=== PATIENT | female | born 1940 | race Two or more races ===

== ENCOUNTER 2017-02-21 13:26 | Inpatient (IN) | payer MEDICARE, OTHER ==
[~2017-02-21] VITALS: Ht 165.1 cm; Wt 81.6 kg
[2017-02-21] MEDS ORDERED: Nitroglycerin Subl 0.4mg tab (Bottle Of 25) SL ONE (14:05)
[2017-02-21] MEDS ORDERED: Morphine Sulfate 2mg/ml Inj IVP ONE (14:15)
[2017-02-21] MEDS ORDERED: Nitroglycerin Subl 0.4mg tab (Bottle Of 25) SL PRN ×3 (14:15→16:00)
[2017-02-21 14:20] LABS: BASOPHILS % (AUTO) 1.2 % (0.0-2.0); EOSINOPHILS % (AUTO) 7.6 % (0.0-3.0); LYMPHOCYTES % (AUTO) 26.9 % (20.0-45.0); MEAN CORPUSCULAR HEMOGLOBIN 28.6 PG (27.0-31.0); MEAN CORPUSCULAR HGB CONC 31.5 G/DL (32.0-36.0); MEAN CORPUSCULAR VOLUME 91 FL (80-99); MEAN PLATELET VOLUME 7.8 FL (6.5-10.1); MONOCYTES % (AUTO) 8.6 % (1.0-10.0); NEUTROPHILS % (AUTO) 55.8 % (45.0-75.0); PLATELET COUNT 187 K/UL (150-450); RED CELL DISTRIBUTION WIDTH 12.8 % (11.6-14.8); WHITE BLOOD COUNT 5.6 K/UL (4.8-10.8)
[2017-02-21 14:30] VITALS: BP 143/60
[2017-02-21 14:33] LABS: TROPONIN I < 0.30 ng/mL (<=0.30)
[2017-02-21 14:36] LABS: ALANINE AMINOTRANSFERASE 11 U/L (3-33); ALBUMIN/GLOBULIN RATIO 1.4 (1.0-2.7); ANION GAP 17 (5-15); ASPARTATE AMINO TRANSFERASE 18 U/L (5-40); CARBON DIOXIDE 19 mEQ/L (20-30); CHLORIDE 99 mEQ/L (98-107); CREATININE 1.9 mg/dL (0.5-0.9); HEMOLYSIS 10; POTASSIUM 5.7 mEQ/L (3.4-4.9); SODIUM 135 mEQ/L (135-145); TOTAL PROTEIN 7.2 g/dL (6.6-8.7)
--- NOTE | 2017-02-21 14:41 | Emergency Room Report ---
History of Present Illness General Chief Complaint: Chest Pain Source: Patient Present Illness HPI 76-year-old female presents ED complaining of chest pain. Chest pain started this morning while at rest. Pain is left-sided, dull, nonradiating. Denies shortness of breath. Notes history of hypertension but does not remember her medication. No other aggravating or relieving factors. Denies any other associated symptoms Allergies: Coded Allergies: No Known Allergies (Unverified , 02/21/17) Patient History Past Medical History: HTN, CAD Past Surgical History: none Pertinent Family History: none Social History: Denies: alcohol use, drug use, smoking Now: No Immunizations: UTD Reviewed Nursing Documentation: PMH: Agreed, PSxH: Agreed Nursing Documentation-PMH Past Medical History: No History, Except For Hx Cardiac Problems: Yes Review of Systems All Other Systems: negative except mentioned in HPI Physical Exam Vital Signs Date Time Temp Pulse Resp B/P Pulse Ox O2 Delivery O2 Flow Rate FiO2 02/21/17 13:40 97.5 66 20 163/77 95 Room Air Sp02 EP Interpretation: reviewed, normal General Appearance: no apparent distress, alert, GCS 15, non-toxic Head: normocephalic, atraumatic Eyes: bilateral eye PERRL, bilateral eye normal inspection ENT: hearing grossly normal, normal pharynx, no angioedema, normal voice Neck: full range of motion, supple/symm/no masses Respiratory: chest non-tender, lungs clear, normal breath sounds, speaking full sentences Cardiovascular #1: regular rate, rhythm, no edema Cardiovascular #2: 2+ carotid (R), 2+ carotid (L), 2+ radial (R), 2+ radial (L) , 2+ dorsalis pedis (R), 2+ dorsalis pedis (L) Gastrointestinal: normal bowel sounds, non tender, soft, non-distended, no guarding, no rebound Rectal: deferred Genitourinary: normal inspection, no CVA tenderness Musculoskeletal: back normal, gait/station normal, normal range of motion, non- tender Neurologic: alert, oriented x3, responsive, motor strength/tone normal, sensory intact, speech normal Psychiatric: judgement/insight normal, memory normal, mood/affect normal, no suicidal/homicidal ideation Reflexes: 3+ bicep (R), 3+ bicep (L), 3+ tricep (R), 3+ tricep (L), 3+ knee (R) , 3+ knee (L) Skin: normal color, no rash, warm/dry, well hydrated Lymphatic: no adenopathy Medical Decision Making Diagnostic Impression: Primary Impression: ACS (acute coronary syndrome) Additional Impressions: Hyperkalemia, diminished renal excretion ARF (acute renal failure) Qualified Codes: N17.9 - Acute kidney failure, unspecified ER Course Hospital Course 76-year-old female presents ED complaining of left-sided chest pain Differential diagnoses include: OR/unstable angina, contusion, muscle strain, PTX, rib fracture Clinical course Patient placed on stretcher. on nurse outreach case manager. After initial history and physical I ordered labs, EKG, chest x-ray, NTG labs reviewed- no leukocytosis, hb/hct stable, K 5.7, Cr 1.9, trop negative EKG - NSR, no acute changes Chest x-ray- unremarkable Patient denies show significant improvement after nitroglycerin. Given morphine and aspirin pain improving Case discussed with Dr. Breaux and he agreed to accept the patient to his service for further care and support I. I feel this is a highly complex case requiring extensive working including EKG/Rhythm strip, Xray/CT/US, Blood/urine lab work, repeat exams while in ED, and administration of strong opiates/narcotics for pain control, admission to hospital or close patient follow up. Diagnosis - ACS, hyperkalemia, ARF admitted to telemetry in serious condition Labs Test 02/21/17 14:05 White Blood Count 5.6 K/UL (4.8-10.8) Red Blood Count 4.40 M/UL (4.20-5.40) Hemoglobin 12.6 G/DL (12.0-16.0) Hematocrit 40.0 % (37.0-47.0) Mean Corpuscular Volume 91 FL (80-99) Mean Corpuscular Hemoglobin 28.6 PG (27.0-31.0) Mean Corpuscular Hemoglobin Concent 31.5 G/DL (32.0-36.0) Red Cell Distribution Width 12.8 % (11.6-14.8) Platelet Count 187 K/UL (150-450) Mean Platelet Volume 7.8 FL (6.5-10.1) Neutrophils (%) (Auto) 55.8 % (45.0-75.0) Lymphocytes (%) (Auto) 26.9 % (20.0-45.0) Monocytes (%) (Auto) 8.6 % (1.0-10.0) Eosinophils (%) (Auto) 7.6 % (0.0-3.0) Basophils (%) (Auto) 1.2 % (0.0-2.0) Sodium Level 135 mEQ/L (135-145) Potassium Level 5.7 mEQ/L (3.4-4.9) Chloride Level 99 mEQ/L (98-107) Carbon Dioxide Level 19 mEQ/L (20-30) Anion Gap 17 (5-15) Blood Urea Nitrogen 47 mg/dL (7-23) Creatinine 1.9 mg/dL (0.5-0.9) Estimat Glomerular Filtration Rate mL/min (>60) Glucose Level 100 mg/dL (74-106) Calcium Level 10.0 mg/dL (8.6-10.2) Total Bilirubin 0.4 mg/dL (0.0-1.2) Aspartate Amino Transf (AST/SGOT) 18 U/L (5-40) Alanine Aminotransferase (ALT/SGPT) 11 U/L (3-33) Alkaline Phosphatase 87 U/L (35-104) Total Creatine Kinase 73 U/L (26-140) Troponin I < 0.30 ng/mL (<=0.30) Total Protein 7.2 g/dL (6.6-8.7) Albumin 4.2 g/dL (3.5-5.2) Globulin 3.0 g/dL Albumin/Globulin Ratio 1.4 (1.0-2.7) EKG Diagnostic Results Rate: normal Rhythm: NSR ST Segments: no acute changes ASA given to the pt in ED: Yes Rhythm Strip Diag. Results EP Interpretation: yes Rhythm: NSR, no PVC's, no ectopy Chest X-Ray Diagnostic Results EP Interpretation: Yes Findings: no consolidation, no effusion, no pneumothorax, no acute cardiopulmonary disease Number of Views: 1 Last Vital Signs Date Time Temp Pulse Resp B/P Pulse Ox O2 Delivery O2 Flow Rate FiO2 02/21/17 14:12 174/72 02/21/17 13:40 97.5 66 20 95 Room Air Status: improved Disposition: ADMITTED INPATIENT Condition: Serious Referrals: NON PHYSICIAN (PCP) MELINDA RENE M.D. February 21, 2017 14:41
[2017-02-21] MEDS ORDERED: Sodium Polystyrene Sulfonate 15gm Powder ORAL ONE (14:45)
[2017-02-21] MEDS ORDERED: Ketorolac 30mg Inj IV PRN (14:45)
[2017-02-21] MEDS ORDERED: Diltiazem 25mg/5ml IV PRN (14:45)
[2017-02-21] MEDS ORDERED: Enalaprilat 2.5mg/2ml Inj IV PRN (14:45)
[2017-02-21] MEDS ORDERED: Calcium Gluconate 1gm/10ml vial IVP ONE (14:45)
[2017-02-21] MEDS ORDERED: DuoNeb 0.5-3(2.5)mg/3ml neb HHN PRN (14:45)
[2017-02-21] MEDS ORDERED: Miralax 17gm pkt ORAL PRN (14:45)
[2017-02-21] MEDS ORDERED: Morphine Sulfate 2mg/ml Inj IVP PRN (14:45)
[2017-02-21 14:47] LABS: CKMB 2.2 ng/mL (< 3.8)
[2017-02-21 15:30] LABS: MAGNESIUM 1.9 mg/dL (1.7-2.5); PHOSPHORUS 3.3 mg/dL (2.5-4.8)
[2017-02-21 15:45] LABS: APPEARANCE,URINE CLEAR; KETONES,URINE NEGATIVE (NEGATIVE); LEUKOCYTE ESTERASE ,URINE NEGATIVE (NEGATIVE); NITRITE,URINE NEGATIVE (NEGATIVE); PH,URINE 6 (4.5-8.0); PROTEIN,URINE NEGATIVE (NEGATIVE); UROBILINOGEN,URINE NORMAL MG/DL (0.0-1.0)
--- NOTE | 2017-02-21 15:48 | Consultation ---
Consult Note Consult Note Cardiology consult for Dr. Leger Full note dictated #[id number] JOHNNY ENGEL February 21, 2017 15:48
[2017-02-21 16:00] VITALS: BP 148/73
[2017-02-21 16:19] LABS: RBC,URINE 0-2 /HPF (0 - 2)
[2017-02-21 16:20] LABS: AMORPHOUS SEDIMENT,UR FEW /LPF; BACTERIA,URINE FEW /HPF; SQUAMOUS EPITHELIAL CELL,UR OCCASIONAL /LPF (NONE/OCC); WBC,URINE 0-2 /HPF (0 - 2)
[2017-02-21 16:39] VITALS: BP 142/74
--- NOTE | 2017-02-21 19:30 | Consultation ---
DATE OF CONSULTATION: 02/21/2017 REQUESTING PHYSICIAN: Mike Breaux M.D. REASON FOR CONSULT: Chest pain. HISTORY OF PRESENT ILLNESS: History is obtained from the treating providers and the patient's family, as the patient is [place] Citizen-speaking. The patient is a 76-year-old [place] Citizen woman with a history of hypertension and hyperlipidemia, who presents with complaints of left-sided chest pain radiating across her chest into her back. Symptoms began while at rest this morning at about 9 a.m. The pain was constant for about four hours and then worsened. So, she presented to the emergency room. She describes associated nausea without vomiting, mild dizziness/lightheadedness and dyspnea. In the emergency room, she received sublingual nitroglycerin as well as morphine with resolution of her symptoms. Her initial EKG did not show acute ischemic change and initial troponin is negative. She has no previous history of coronary disease and has not had any previous similar symptoms. PAST MEDICAL HISTORY: As noted above. 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 PAST SURGICAL HISTORY: Status post bilateral cataract surgery about five years ago. MEDICATIONS: On admission, (the patient is unsure of all of her medications and doses) Singulair, Antivert, amlodipine, metoprolol, Lipitor and Symbicort inhaler. ALLERGIES: No known drug allergies. SOCIAL HISTORY: There is no history of tobacco or alcohol abuse. FAMILY HISTORY: Positive for diabetes in her sister and asthma in her mother. PHYSICAL EXAMINATION: GENERAL: Alert, obese white female, in no acute distress. VITAL SIGNS: Blood pressure is 174/72, pulse 66 and regular, respirations 20, afebrile and oxygen saturation 95% on room air. HEENT: Normocephalic and atraumatic. Pupils are equal, round, and reactive to light. Sclerae anicteric. Oral mucosa are moist. NECK: Supple. There is no jugular venous distention. No thyromegaly. Carotid pulses are 2+ bilaterally without bruits. LUNGS: Clear to auscultation bilaterally. HEART: Regular rate and rhythm. S1 and S2 with distant heart sounds. No murmurs, rubs, S3, S4. ABDOMEN: Obese, soft and nontender. No palpable mass. No bruits. EXTREMITIES: No cyanosis, clubbing, or edema. A 2+ dorsalis pedis and posterior tibial pulses bilaterally. SKIN: No rashes or lesions. LABORATORY AND DIAGNOSTIC DATA: Hemoglobin 12.6, hematocrit 40, white blood count 5600, and platelets 187,000. Troponin less than 0.3. Sodium 135, potassium 5.7, chloride 99, bicarbonate 19, BUN 47, and creatinine 1.9. Natriuretic peptide 393. EKG shows normal sinus rhythm at a rate of 62 beats per minute, axis 0 degrees, low voltage QRS, poor R progression in V1 and V2. No ST-segment or T-wave changes. No old EKG available for comparison. Chest x-ray is pending. ASSESSMENT AND RECOMMENDATIONS: The patient is a 76-year-old woman with a history of hypertension and hyperlipidemia who is admitted with acute onset of chest pain radiating to her back associated with nausea and mild lightheadedness. She is noted to have been negative initial troponin level. She does have however an elevated potassium level and renal insufficiency with creatinine of 1.9. Her baseline renal function is not known. She will be admitted to telemetry to rule out myocardial infarction. Serial troponin levels and EKGs will be obtained. Her home medications will be brought in by her daughter. She will undergo echocardiography to assess left ventricular function and wall motion. We will give aspirin, metoprolol and statins for coronary disease. Continue amlodipine for blood pressure control. Kayexalate can be given for her hyperkalemia. If she rules out for myocardial infarction, then a stress nuclear study is reasonable to rule out myocardial ischemia. Fernanda Bearden M.D. DR: NAGI JOB#: [id number] CC: Fernanda Bearden M.D.
[2017-02-21 20:00] VITALS: BP 127/63
[2017-02-21] MEDS ORDERED: CRESTOR20 MG ORAL (20:02)
[2017-02-21] MEDS ORDERED: METOPROLOL TART25 MG ORAL (20:02)
[2017-02-21] MEDS ORDERED: CLONAZEPAM0.5 MG PO (20:02)
[2017-02-21] MEDS ORDERED: MECLIZINE HCL25 M1 ORAL (20:02)
[2017-02-21] MEDS ORDERED: ROPINIROLE HC0.25 MG PO (20:02)
[2017-02-21] MEDS ORDERED: METHIMAZOLE10 MG PO (20:02)
[2017-02-21] MEDS ORDERED: OLANZAPINE2.5 MG ORAL (20:02)
[2017-02-21] MEDS ORDERED: APRESOLINE50 MG ORAL (20:02)
[2017-02-21] MEDS ORDERED: TRAMADOL HCL50 MG ORAL (20:02)
[2017-02-21] MEDS ORDERED: NAMENDA XR7 MG PO (20:02)
[2017-02-21] MEDS ORDERED: MICARDIS80 MG ORAL (20:02)
[2017-02-21] MEDS ORDERED: NEXIUM40 MG ORAL (20:02)
[2017-02-21] MEDS ORDERED: MYRBETRIQ50 MG PO (20:02)
[2017-02-21] MEDS ORDERED: rOPINIRole 0.25mg tab ORAL SCH (21:00)
[2017-02-21] MEDS ORDERED: OLANZapine 2.5mg tab ORAL SCH (21:00)
[2017-02-21] MEDS ORDERED: Atorvastatin 20mg tab ORAL SCH (21:00)
[2017-02-21] MEDS ORDERED: Metoprolol 25mg tab ORAL SCH (21:00)
[2017-02-21] MEDS: Metoprolol 25mg tab ORAL SCH (21:25)
[2017-02-21] MEDS: Heparin 5000 units/ml inj SUBQ SCH (21:27)
[2017-02-21] MEDS: HydrALAZINE 50mg tab ORAL SCH (22:14)
[2017-02-21] MEDS: traMADol 50mg tab ORAL PRN (22:16)
--- NOTE | 2017-02-21 22:28 | History and Physical ---
History of Present Illness General Date patient seen: February 22, 2017 Reason for Hospitalization: Chest Pain Present Illness HPI 76-year-old female with hx of htn, CAD presented to ED complaining of chest pain, started this morning while at rest. Pain is left-sided, dull, nonradiating. Denies shortness of breath. Notes history of hypertension but does not remember her medication. No other aggravating or relieving factors. Denies any other associated symptoms. Pt is admitted to telemetry for further work up. Allergies: Coded Allergies: No Known Allergies (Unverified , 02/21/17) Medication History Scheduled Clonazepam (Clonazepam), 0.5 MG PO BID, (Reported) Esomeprazole Magnesium (Nexium), 40 MG ORAL DAILY, (Reported) Hydralazine HCl (Hydralazine HCl), 50 MG ORAL EVERY 8 HOURS, (Reported) Memantine Hcl (Namenda Xr), 7 MG PO QHS, (Reported) Methimazole (Methimazole), 10 MG PO EVERY OTHER DAY, (Reported) Metoprolol Tartrate* (Metoprolol Tartrate*), 25 MG ORAL EVERY 12 HOURS, ( Reported) Mirabegron (Myrbetriq), 50 MG PO DAILY, (Reported) Olanzapine (Olanzapine), 2.5 MG ORAL QHS, (Reported) Ropinirole Hcl* (Ropinirole Hcl*), 0.25 MG PO QHS, (Reported) Rosuvastatin Calcium* (Crestor*), 20 MG ORAL DAILY, (Reported) Telmisartan (Micardis), 80 MG ORAL DAILY, (Reported) Tramadol Hcl* (Ultram*), 50 MG ORAL TID, (Reported) Scheduled PRN Meclizine Hcl (Meclizine Hcl), 25 MG ORAL THREE TIMES A DAY PRN for for dizziness, (Reported) Patient History Healthcare decision maker Resuscitation status Full Code Advanced Directive on File No Review of Systems All Other Systems: negative except mentioned in HPI Physical Exam General Appearance: WD/WN Lines, tubes and drains: peripheral, central line HEENT: normocephalic, atraumatic Neck: non-tender, normal alignment Respiratory/Chest: chest wall non-tender, lungs clear Breasts: no masses Cardiovascular/Chest: normal peripheral pulses Abdomen: normal bowel sounds Extremities: normal range of motion, non-tender Last 24 Hour Vital Signs Date Time Temp Pulse Resp B/P Pulse Ox O2 Delivery O2 Flow Rate FiO2 02/21/17 22:14 132/71 02/21/17 21:25 66 127/63 02/21/17 20:00 96.8 66 21 127/63 94 Room Air 02/21/17 17:32 65 142/74 02/21/17 16:39 97.9 65 18 142/74 95 Room Air 02/21/17 16:34 66 02/21/17 16:00 62 16 148/73 99 Room Air 02/21/17 16:00 97.9 62 16 148/73 99 Room Air 02/21/17 14:48 97.9 02/21/17 14:30 97.5 69 14 143/60 98 Room Air 02/21/17 14:30 69 14 Room Air 02/21/17 14:12 174/72 02/21/17 13:40 97.5 66 20 163/77 95 Room Air Laboratory Tests Test 02/21/17 14:05 02/21/17 14:15 02/21/17 14:50 White Blood Count 5.6 K/UL (4.8-10.8) Red Blood Count 4.40 M/UL (4.20-5.40) Hemoglobin 12.6 G/DL (12.0-16.0) Hematocrit 40.0 % (37.0-47.0) Mean Corpuscular Volume 91 FL (80-99) Mean Corpuscular Hemoglobin 28.6 PG (27.0-31.0) Mean Corpuscular Hemoglobin Concent 31.5 G/DL (32.0-36.0) L Red Cell Distribution Width 12.8 % (11.6-14.8) Platelet Count 187 K/UL (150-450) Mean Platelet Volume 7.8 FL (6.5-10.1) Neutrophils (%) (Auto) 55.8 % (45.0-75.0) Lymphocytes (%) (Auto) 26.9 % (20.0-45.0) Monocytes (%) (Auto) 8.6 % (1.0-10.0) Eosinophils (%) (Auto) 7.6 % (0.0-3.0) H Basophils (%) (Auto) 1.2 % (0.0-2.0) Sodium Level 135 mEQ/L (135-145) Potassium Level 5.7 mEQ/L (3.4-4.9) H Chloride Level 99 mEQ/L (98-107) Carbon Dioxide Level 19 mEQ/L (20-30) L Anion Gap 17 (5-15) H Blood Urea Nitrogen 47 mg/dL (7-23) H Creatinine 1.9 mg/dL (0.5-0.9) H Estimat Glomerular Filtration Rate mL/min (>60) Glucose Level 100 mg/dL (74-106) Calcium Level 10.0 mg/dL (8.6-10.2) Total Bilirubin 0.4 mg/dL (0.0-1.2) Aspartate Amino Transf (AST/SGOT) 18 U/L (5-40) Alanine Aminotransferase (ALT/SGPT) 11 U/L (3-33) Alkaline Phosphatase 87 U/L (35-104) Total Creatine Kinase 73 U/L (26-140) Creatine Kinase MB 2.2 ng/mL (< 3.8) Creatine Kinase MB Relative Index 3.0 Troponin I < 0.30 ng/mL (<=0.30) Pro-B-Type Natriuretic Peptide 393 pg/mL (0-450) Total Protein 7.2 g/dL (6.6-8.7) Albumin 4.2 g/dL (3.5-5.2) Globulin 3.0 g/dL Albumin/Globulin Ratio 1.4 (1.0-2.7) Plasma/Serum Osmolality Pending Uric Acid 8.0 mg/dL (3.0-7.5) H Phosphorus Level 3.3 mg/dL (2.5-4.8) Magnesium Level 1.9 mg/dL (1.7-2.5) Free Thyroxine 1.23 ng/dL (0.86-1.85) Free Triiodothyronine Pending Cortisol Pending Urine Color Pale yellow Urine Appearance Clear Urine pH 6 (4.5-8.0) Urine Specific [place] 1.005 (1.005-1.035) Urine Protein Negative (NEGATIVE) Urine Glucose (UA) Negative (NEGATIVE) Urine Ketones Negative (NEGATIVE) Urine Occult Blood Negative (NEGATIVE) Urine Nitrite Negative (NEGATIVE) Urine Bilirubin Negative (NEGATIVE) Urine Urobilinogen Normal MG/DL (0.0-1.0) Urine Leukocyte Esterase Negative (NEGATIVE) Urine RBC 0-2 /HPF (0 - 2) Urine WBC 0-2 /HPF (0 - 2) Urine Squamous Epithelial Cells Occasional /LPF Urine Amorphous Sediment Few /LPF (NONE) H Urine Bacteria Few /HPF (NONE) Urine Eosinophils None seen Urine Osmolality Pending Urine Random Sodium 33 mmol/L Urine Random Chloride 30 mmol/L Urine Potassium Timed 13 mmol/L Height (Feet): 5 Height (Inches): 5.00 Weight (Pounds): 180 Medications Current Medications Medications (Trade) Dose Ordered Sig/Tressa Route PRN Reason Start Time Stop Time Status Last Admin Dose Admin Acetaminophen (Tylenol) 650 mg Q4H PRN ORAL T>100.5 02/21/17 14:45 03/23/17 14:44 Albuterol/ Ipratropium (DuoNeb 0.5-3(2.5)mg/3ml) 3 ml Q4H PRN HHN Shortness of Breath 02/21/17 14:45 02/26/17 14:44 Amlodipine Besylate (Norvasc) 5 mg DAILY ORAL 02/21/17 16:30 03/23/17 16:29 02/21/17 17:32 Aspirin (Ecotrin) 81 mg DAILY ORAL 02/22/17 09:00 03/24/17 08:59 Atorvastatin Calcium (Lipitor) 20 mg QHS ORAL 02/21/17 21:00 03/23/17 20:59 02/21/17 21:26 Clonazepam (KlonoPIN) 0.5 mg BID ORAL 02/22/17 09:00 03/01/17 08:59 Diltiazem HCl (Cardizem) 10 mg Q1H PRN IV HR > 120 02/21/17 14:45 03/23/17 14:44 Enalaprilat (Vasotec) 2.5 mg Q6H PRN IV sbp more than 160 02/21/17 14:45 03/23/17 14:44 Heparin Sodium (Porcine) (Heparin 5000 units/ml) 5,000 units EVERY 12 HOURS SUBQ 02/21/17 21:00 03/23/17 20:59 02/21/17 21:27 Hydralazine HCl (Apresoline) 50 mg EVERY 8 HOURS ORAL 02/21/17 22:00 03/23/17 21:59 02/21/17 22:14 Metoprolol Tartrate (Lopressor) 25 mg Q12HR ORAL 02/21/17 21:00 03/23/17 20:59 02/21/17 21:25 Morphine Sulfate (Morphine Sulfate) 2 mg Q4H PRN IVP Severe Pain (Pain Scale 7-10) 02/21/17 14:45 02/28/17 14:44 Nitroglycerin (Ntg) 0.4 mg Every 5 Minutes PRN SL Prn Chest Pain 02/21/17 14:45 03/23/17 14:44 Olanzapine (ZyPREXA) 2.5 mg QHS ORAL 02/21/17 21:00 03/23/17 20:59 02/21/17 21:26 Ondansetron HCl (Zofran) 4 mg Q6H PRN IVP Nausea & Vomiting 02/21/17 14:45 03/23/17 14:44 Pantoprazole (Protonix) 40 mg DAILY ORAL 02/22/17 09:00 03/24/17 08:59 Polyethylene Glycol (Miralax) 17 gm DAILYPRN PRN ORAL Constipation 02/21/17 14:45 03/23/17 14:44 Ropinirole HCl (Requip) 0.25 mg QHS ORAL 02/21/17 21:00 03/23/17 20:59 02/21/17 22:13 Temazepam (Restoril) 15 mg HSPRN PRN ORAL Insomnia 02/21/17 21:00 02/28/17 20:59 Tramadol HCl (Ultram) 50 mg TIDPRN PRN ORAL Moderate Pain (Pain Scale 4-6) 02/21/17 21:52 02/28/17 21:51 02/21/17 22:16 Assessment/Plan Problem List: (1) ACS (acute coronary syndrome) ICD Codes: I24.9 - Acute ischemic heart disease, unspecified SNOMED: 676504969 (2) Hyperkalemia, diminished renal excretion ICD Codes: E87.5 - Hyperkalemia SNOMED: 16016636 (3) ARF (acute renal failure) ICD Codes: N17.9 - Acute kidney failure, unspecified SNOMED: 55257938 Qualifiers: Qualified Codes: N17.9 - Acute kidney failure, unspecified (4) Costochondritis ICD Codes: M94.0 - Chondrocostal junction syndrome [Tietze] SNOMED: 51709061 Assessment/Plan serial ekg, troponin, echo cardio to see renal w/u renal us sympotmatic treatment WINSOME REECE February 21, 2017 22:28
[2017-02-22] VITALS (7 sets, daily range): BP systolic 106–128; BP diastolic 54–72
[2017-02-22] MEDS: HydrALAZINE 50mg tab ORAL SCH ×2 (06:05→14:19)
--- NOTE | 2017-02-22 07:26 | Cardiology Report ---
APPROVED REPORT EXAM: Two-dimensional and M-mode echocardiogram with Doppler and color Doppler. INDICATION Left ventricular function M-Mode DIMENSIONS IVSd0.8 (0.7-1.1cm)Left Atrium (MM)3.8 (1.6-4.0cm) LVDd4.9 (3.5-5.6cm)Aortic Root2.6 (2.0-3.7cm) PWd0.8 (0.7-1.1cm)Aortic Cusp Exc.1.7 (1.5-2.0cm) LVDs2.4 (2.5-4.0cm) PWs0.8 cm Normal left ventricular chamber size, systolic function and wall motion. Left ventricular ejection fraction estimated to be 60-65 %. No evidence of left ventricular hypertrophy. No evidence of pericardial fat or effusion. Right cardiac chamber sizes are within normal limits. Mild left atrial enlargement by 2D. Focal aortic valve sclerosis with adequate cusp excursion Thickened mitral valve leaflets with normal excursion. Mitral annulus and aortic root calcification. Pulmonic valve not well visualized. Normal tricuspid valve structure. IVC is normal in size with physiologic collapse. A color flow and spectral Doppler study was performed and revealed: No aortic regurgitation. Moderate mitral regurgitation. Normal left ventricular function. Mild tricuspid regurgitation. Tricuspid systolic velocities suggests peak right ventricular systolic pressure of 30 mmHg
[2017-02-22 08:14] LABS: PROTHROMBIN TIME 10.6 SEC (9.30-11.50)
[2017-02-22 08:15] LABS: MEAN CORPUSCULAR HEMOGLOBIN 28.3 PG (27.0-31.0); MEAN CORPUSCULAR HGB CONC 31.4 G/DL (32.0-36.0); MEAN CORPUSCULAR VOLUME 90 FL (80-99); PLATELET COUNT 148 K/UL (150-450); RED BLOOD COUNT 3.76 M/UL (4.20-5.40); WHITE BLOOD COUNT 4.5 K/UL (4.8-10.8)
[2017-02-22 08:24] LABS: CHOLESTEROL/HDL RATIO 3.5 (3.3-4.4); CRP QUANT 0.4 mg/dL (< 0.5)
[2017-02-22 08:26] LABS: THYROID STIMULATING HORMONE 0.037 uIU/mL (0.300-4.500)
[2017-02-22 08:48] LABS: TROPONIN I < 0.30 ng/mL (<=0.30)
[2017-02-22] MEDS ORDERED: Aspirin Baby 81mg ORAL SCH (09:00)
[2017-02-22] MEDS ORDERED: traMADol 50mg tab ORAL PRN (09:00)
[2017-02-22] MEDS ORDERED: traMADol 50mg tab ORAL SCH (09:00)
[2017-02-22] MEDS ORDERED: Aspirin EC 81mg tab ORAL SCH (09:00)
[2017-02-22 09:22] LABS: BAND NEUTROPHILS % (MANUAL) 0 % (0-8); BASOPHILS % (MANUAL) 0 % (0-2); EOSINOPHILS % (MANUAL) 5 % (0-3); HYPOCHROMASIA 1+; LYMPHOCYTES % (MANUAL) 30 % (20-45); NEUTROPHILS % (MANUAL) 57 % (45-75); PLATELET ESTIMATE ADEQUATE; PLATELET MORPHOLOGY NORMAL; TOTAL CELLS COUNTED 100
[2017-02-22] MEDS: clonazePAM 0.5mg tab ORAL SCH ×2 (09:53→17:31)
[2017-02-22] MEDS: traMADol 50mg tab ORAL PRN (09:57)
[2017-02-22] MEDS: Metoprolol 25mg tab ORAL SCH (10:14)
[2017-02-22] MEDS: Heparin 5000 units/ml inj SUBQ SCH (10:17)
[2017-02-22 10:20] LABS: CORTISOL LC 13.9 ug/dL (.)
--- NOTE | 2017-02-22 12:47 | Pulmonology Progress Note ---
Assessment/Plan Problems: (1) ACS (acute coronary syndrome) (2) Hyperkalemia, diminished renal excretion (3) ARF (acute renal failure) (4) Costochondritis Assessment/Plan check echo cardio f/u renal studies pending symptomatic treatment troponin negative Subjective ROS Limited/Unobtainable: No Constitutional: Reports: no symptoms Respiratory: Reports: no symptoms Cardiovascular: Reports: no symptoms Allergies: Coded Allergies: No Known Allergies (Unverified , 02/21/17) Objective Last 24 Hour Vital Signs Date Time Temp Pulse Resp B/P Pulse Ox O2 Delivery O2 Flow Rate FiO2 02/22/17 11:55 97.5 67 18 121/64 95 Room Air 02/22/17 10:27 97.0 02/22/17 10:14 71 120/61 02/22/17 10:14 71 120/61 02/22/17 10:01 71 120/61 02/22/17 08:17 97.0 73 18 106/54 96 Room Air 02/22/17 07:57 74 20 Room Air 21 02/22/17 06:05 118/64 02/22/17 04:00 61 02/22/17 04:00 96.8 63 21 118/69 98 Room Air 02/22/17 00:00 97.7 65 20 128/72 94 Room Air 02/22/17 00:00 60 02/21/17 22:14 132/71 02/21/17 21:25 66 127/63 02/21/17 20:00 96.8 66 21 127/63 94 Room Air 02/21/17 20:00 65 02/21/17 19:30 68 20 Room Air 21 02/21/17 17:32 65 142/74 02/21/17 16:39 97.9 65 18 142/74 95 Room Air 02/21/17 16:34 66 02/21/17 16:00 62 16 148/73 99 Room Air 02/21/17 16:00 97.9 62 16 148/73 99 Room Air 02/21/17 14:48 97.9 02/21/17 14:30 97.5 69 14 143/60 98 Room Air 02/21/17 14:30 69 14 Room Air 02/21/17 14:12 174/72 02/21/17 13:40 97.5 66 20 163/77 95 Room Air Intake and Output 02/21/17 02/22/17 19:00 07:00 Intake Total 740 ml 100 ml Balance 740 ml 100 ml Intake Oral 240 ml 100 ml IV Total 500 ml General Appearance: WD/WN HEENT: normocephalic, atraumatic Respiratory/Chest: chest wall non-tender, lungs clear Breasts: no masses Cardiovascular: normal peripheral pulses Abdomen: normal bowel sounds, soft, non tender Genitourinary: normal external genitalia Extremities: no cyanosis, no clubbing Skin: no rash Neurologic/Psychiatric: health inspector II-XII grossly normal Lymphatic: no neck adenopathy Laboratory Tests 02/21/17 14:05: White Blood Count 5.6, Red Blood Count 4.40, Hemoglobin 12.6, Hematocrit 40.0, Mean Corpuscular Volume 91, Mean Corpuscular Hemoglobin 28.6, Mean Corpuscular Hemoglobin Concent 31.5L, Red Cell Distribution Width 12.8, Platelet Count 187, Mean Platelet Volume 7.8, Neutrophils (%) (Auto) 55.8, Lymphocytes (%) (Auto) 26.9, Monocytes (%) (Auto) 8.6, Eosinophils (%) (Auto) 7.6H, Basophils (%) (Auto ) 1.2, Sodium Level 135, Potassium Level 5.7H, Chloride Level 99, Carbon Dioxide Level 19L, Anion Gap 17H, Blood Urea Nitrogen 47H, Creatinine 1.9H, Estimat Glomerular Filtration Rate , Glucose Level 100, Calcium Level 10.0, Total Bilirubin 0.4, Aspartate Amino Transf (AST/SGOT) 18, Alanine Aminotransferase (ALT/SGPT) 11, Alkaline Phosphatase 87, Total Creatine Kinase 73, Creatine Kinase MB 2.2, Creatine Kinase MB Relative Index 3.0, Troponin I < 0.30, Pro-B-Type Natriuretic Peptide 393, Total Protein 7.2, Albumin 4.2, Globulin 3.0, Albumin/Globulin Ratio 1.4 02/21/17 14:15: Plasma/Serum Osmolality [Pending], Uric Acid 8.0H, Phosphorus Level 3.3, Magnesium Level 1.9, Free Thyroxine 1.23, Free Triiodothyronine [Pending], Cortisol 13.9 02/21/17 14:50: Urine Color Pale yellow, Urine Appearance Clear, Urine pH 6, Urine Specific [place] 1.005, Urine Protein Negative, Urine Glucose (UA) Negative, Urine Ketones Negative, Urine Occult Blood Negative, Urine Nitrite Negative, Urine Bilirubin Negative, Urine Urobilinogen Normal, Urine Leukocyte Esterase Negative , Urine RBC 0-2, Urine WBC 0-2, Urine Squamous Epithelial Cells Occasional, Urine Amorphous Sediment FewH, Urine Bacteria Few, Urine Eosinophils None seen, Urine Osmolality [Pending], Urine Random Sodium 33, Urine Random Chloride 30, Urine Potassium Timed 13 02/22/17 07:45: White Blood Count 4.5L, Red Blood Count 3.76L, Hemoglobin 10.7L, Hematocrit 33.9L, Mean Corpuscular Volume 90, Mean Corpuscular Hemoglobin 28.3, Mean Corpuscular Hemoglobin Concent 31.4L, Red Cell Distribution Width 13.0, Platelet Count 148L, Mean Platelet Volume 7.0, Neutrophils (%) (Auto) , Lymphocytes (%) (Auto) , Monocytes (%) (Auto) , Eosinophils (%) (Auto) , Basophils (%) (Auto) , Troponin I < 0.30, Differential Total Cells Counted 100, Neutrophils % (Manual) 57, Lymphocytes % (Manual) 30, Monocytes % (Manual) 8, Eosinophils % (Manual) 5H, Basophils % (Manual) 0, Band Neutrophils 0, Platelet Estimate Adequate, Platelet Morphology Normal, Hypochromasia 1+, Prothrombin Time 10.6, Prothromb Time International Ratio 1.0, Activated Partial Thromboplast Time 26, C-Reactive Protein, Quantitative 0.4, Triglycerides Level 116, Cholesterol Level 158, LDL Cholesterol 90, HDL Cholesterol 45, Cholesterol/ HDL Ratio 3.5, Thyroid Stimulating Hormone (TSH) 0.037L Current Medications Medications (Trade) Dose Ordered Sig/Tressa Route PRN Reason Start Time Stop Time Status Last Admin Dose Admin Acetaminophen (Tylenol) 650 mg Q4H PRN ORAL T>100.5 02/21/17 14:45 03/23/17 14:44 Albuterol/ Ipratropium (DuoNeb 0.5-3(2.5)mg/3ml) 3 ml Q4H PRN HHN Shortness of Breath 02/21/17 14:45 02/26/17 14:44 Amlodipine Besylate (Norvasc) 5 mg DAILY ORAL 02/21/17 16:30 03/23/17 16:29 02/22/17 10:14 Aspirin (Ecotrin) 81 mg DAILY ORAL 02/22/17 09:00 03/24/17 08:59 02/22/17 09:53 Atorvastatin Calcium (Lipitor) 20 mg QHS ORAL 02/21/17 21:00 03/23/17 20:59 02/21/17 21:26 Clonazepam (KlonoPIN) 0.5 mg BID ORAL 02/22/17 09:00 03/01/17 08:59 02/22/17 09:53 Diltiazem HCl (Cardizem) 10 mg Q1H PRN IV HR > 120 02/21/17 14:45 03/23/17 14:44 Enalaprilat (Vasotec) 2.5 mg Q6H PRN IV sbp more than 160 02/21/17 14:45 03/23/17 14:44 Heparin Sodium (Porcine) (Heparin 5000 units/ml) 5,000 units EVERY 12 HOURS SUBQ 02/21/17 21:00 03/23/17 20:59 02/22/17 10:17 Hydralazine HCl (Apresoline) 50 mg EVERY 8 HOURS ORAL 02/21/17 22:00 03/23/17 21:59 02/22/17 06:05 Metoprolol Tartrate (Lopressor) 25 mg Q12HR ORAL 02/21/17 21:00 03/23/17 20:59 02/22/17 10:14 Morphine Sulfate (Morphine Sulfate) 2 mg Q4H PRN IVP Severe Pain (Pain Scale 7-10) 02/21/17 14:45 02/28/17 14:44 Nitroglycerin (Ntg) 0.4 mg Every 5 Minutes PRN SL Prn Chest Pain 02/21/17 14:45 03/23/17 14:44 Olanzapine (ZyPREXA) 2.5 mg QHS ORAL 02/21/17 21:00 03/23/17 20:59 02/21/17 21:26 Ondansetron HCl (Zofran) 4 mg Q6H PRN IVP Nausea & Vomiting 02/21/17 14:45 03/23/17 14:44 Pantoprazole (Protonix) 40 mg DAILY ORAL 02/22/17 09:00 03/24/17 08:59 02/22/17 09:54 Polyethylene Glycol (Miralax) 17 gm DAILYPRN PRN ORAL Constipation 02/21/17 14:45 03/23/17 14:44 Ropinirole HCl (Requip) 0.25 mg QHS ORAL 02/21/17 21:00 03/23/17 20:59 02/21/17 22:13 Temazepam (Restoril) 15 mg HSPRN PRN ORAL Insomnia 02/21/17 21:00 02/28/17 20:59 Tramadol HCl (Ultram) 50 mg TIDPRN PRN ORAL Moderate Pain (Pain Scale 4-6) 02/21/17 21:52 02/28/17 21:51 02/22/17 09:57 WINSOME REECE February 22, 2017 12:47
[2017-02-22 13:05] LABS: ALANINE AMINOTRANSFERASE 9 U/L (3-33); ALBUMIN/GLOBULIN RATIO 1.1 (1.0-2.7); ANION GAP 15 (5-15); ASPARTATE AMINO TRANSFERASE 16 U/L (5-40); CALCIUM 9.8 mg/dL (8.6-10.2); CARBON DIOXIDE 18 mEQ/L (20-30); CHLORIDE 106 mEQ/L (98-107); CREATININE 1.8 mg/dL (0.5-0.9); HEMOLYSIS 5; POTASSIUM 4.6 mEQ/L (3.4-4.9); SODIUM 139 mEQ/L (135-145); TOTAL PROTEIN 6.3 g/dL (6.6-8.7)
--- NOTE | 2017-02-22 14:17 | Diagnostic Imaging Report ---
Indication: Abnormal renal function tests Technique: Grayscale and duplex images of the kidneys, retroperitoneum, and bladder were obtained. Comparison:None Findings: Right kidney measures 10.5 cm in length. Left kidney measures 9.3 cm in length. Both kidneys demonstrate normal echogenicity. No hydronephrosis. Both kidneys demonstrate multiple cysts. Largest cyst is on the left, measures 3 cm long axis dimension. Hyperechoic non-shadowing foci are seen in the left renal sinus. Normal inferior vena cava. Bladder is normal. Impression: Negative for hydronephrosis Possible nonobstructive left renal calyceal calculi Incidental finding bilateral renal cysts.
--- NOTE | 2017-02-22 15:17 | Consultation ---
Consult Note Consult Note asked to eval for renal failure presents to er with cp PH: hypothyroidism, asthma, hypertension, hyperlipidemia and questionable urethral cyst. Known kidney disease followed by Dr Griffin cutter tender . Assessment/Plan Status; Renal failure : Likely Chronic and superimposed Acute- Anemia ACS DM Psych Ds and OBS High Cholestrol HTN Plan; Adjust meds , Keep BP over 110 syst Anemia frnak- Monitor renal parameters- Saline bollous- Per Cardiology AZUCENA TRINIDAD February 22, 2017 15:17
--- NOTE | 2017-02-22 17:34 | Cardiology Progress Note ---
Assessment/Plan Assessment/Plan chest pain htn hyperthyroidism renal inusf no evidence for mi echo shows normal lv function i have recommended that pt undergo a stress test she is adamant about going home she and her dtr understand allan goign home now before [place] stress test may not be safe. performing the stress test to determine if has any evidence for underlying cad prior to goign home will be safest route but she still want to go home ia have recommended that she fu with me to arrange to arrrange further testing i have explained all via Scottish speaking staff on the floor also the test [facility] able to be performed with the speed it could be performed as inpt tomorrow Subjective Cardiovascular: Denies: chest pain Respiratory: Denies: shortness of breath Gastrointestinal/Abdominal: Denies: abdominal pain Genitourinary: Denies: burning Objective Last 24 Hour Vital Signs Date Time Temp Pulse Resp B/P Pulse Ox O2 Delivery O2 Flow Rate FiO2 02/22/17 15:43 97.0 64 18 123/64 96 Room Air 02/22/17 14:19 122/67 02/22/17 14:10 66 122/67 02/22/17 11:55 97.5 67 18 121/64 95 Room Air 02/22/17 11:34 62 02/22/17 10:27 97.0 02/22/17 10:14 71 120/61 02/22/17 10:14 71 120/61 02/22/17 10:01 71 120/61 02/22/17 08:17 97.0 73 18 106/54 96 Room Air 02/22/17 07:57 74 20 Room Air 21 02/22/17 07:37 71 02/22/17 06:05 118/64 02/22/17 04:00 61 02/22/17 04:00 96.8 63 21 118/69 98 Room Air 02/22/17 00:00 97.7 65 20 128/72 94 Room Air 02/22/17 00:00 60 02/21/17 22:14 132/71 02/21/17 21:25 66 127/63 02/21/17 20:00 96.8 66 21 127/63 94 Room Air 02/21/17 20:00 65 02/21/17 19:30 68 20 Room Air 21 General Appearance: no apparent distress, alert, obese Neck: supple Cardiovascular: normal rate, regular rhythm Respiratory/Chest: lungs clear, normal breath sounds Abdomen: normal bowel sounds, non tender, soft Extremities: no swelling Intake and Output 02/21/17 02/22/17 19:00 07:00 Intake Total 740 ml 100 ml Balance 740 ml 100 ml Intake Oral 240 ml 100 ml IV Total 500 ml Laboratory Tests Test 02/22/17 07:40 02/22/17 07:45 Sodium Level 139 mEQ/L (135-145) Potassium Level 4.6 mEQ/L (3.4-4.9) Chloride Level 106 mEQ/L (98-107) Carbon Dioxide Level 18 mEQ/L (20-30) L Anion Gap 15 (5-15) Blood Urea Nitrogen 42 mg/dL (7-23) H Creatinine 1.8 mg/dL (0.5-0.9) H Estimat Glomerular Filtration Rate mL/min (>60) Glucose Level 120 mg/dL (74-106) H Calcium Level 9.8 mg/dL (8.6-10.2) Total Bilirubin 0.2 mg/dL (0.0-1.2) Aspartate Amino Transf (AST/SGOT) 16 U/L (5-40) Alanine Aminotransferase (ALT/SGPT) 9 U/L (3-33) Alkaline Phosphatase 70 U/L (35-104) Total Protein 6.3 g/dL (6.6-8.7) L Albumin 3.4 g/dL (3.5-5.2) L Globulin 2.9 g/dL Albumin/Globulin Ratio 1.1 (1.0-2.7) White Blood Count 4.5 K/UL (4.8-10.8) L Red Blood Count 3.76 M/UL (4.20-5.40) L Hemoglobin 10.7 G/DL (12.0-16.0) L Hematocrit 33.9 % (37.0-47.0) L Mean Corpuscular Volume 90 FL (80-99) Mean Corpuscular Hemoglobin 28.3 PG (27.0-31.0) Mean Corpuscular Hemoglobin Concent 31.4 G/DL (32.0-36.0) L Red Cell Distribution Width 13.0 % (11.6-14.8) Platelet Count 148 K/UL (150-450) L Mean Platelet Volume 7.0 FL (6.5-10.1) Neutrophils (%) (Auto) % (45.0-75.0) Lymphocytes (%) (Auto) % (20.0-45.0) Monocytes (%) (Auto) % (1.0-10.0) Eosinophils (%) (Auto) % (0.0-3.0) Basophils (%) (Auto) % (0.0-2.0) Differential Total Cells Counted 100 Neutrophils % (Manual) 57 % (45-75) Lymphocytes % (Manual) 30 % (20-45) Monocytes % (Manual) 8 % (1-10) Eosinophils % (Manual) 5 % (0-3) H Basophils % (Manual) 0 % (0-2) Band Neutrophils 0 % (0-8) Platelet Estimate Adequate Platelet Morphology Normal Hypochromasia 1+ Prothrombin Time 10.6 SEC (9.30-11.50) Prothromb Time International Ratio 1.0 (0.9-1.1) Activated Partial Thromboplast Time 26 SEC (23-33) Hemoglobin A1c 5.7 % (< 6.0) Troponin I < 0.30 ng/mL (<=0.30) C-Reactive Protein, Quantitative 0.4 mg/dL (< 0.5) Triglycerides Level 116 mg/dL (< 150) Cholesterol Level 158 mg/dL (< 200) LDL Cholesterol 90 mg/dL (60-99) HDL Cholesterol 45 mg/dL (> 60) Cholesterol/HDL Ratio 3.5 (3.3-4.4) Thyroid Stimulating Hormone (TSH) 0.037 uIU/mL (0.300-4.500) WANDA MIRANDA February 22, 2017 17:34
--- NOTE | 2017-02-22 17:54 | Discharge Instructions ---
Discharge Instructions Discharge Instructions Special Instructions call to see chalk extruding machine operator carlos a or to se pmd dr mer strauss For Congestive Heart Failure Reminder Report to your physician any weight gain of 5 pounds or more in one week. WANDA MIRANDA February 22, 2017 17:54
[2017-02-22] MEDS ORDERED: LIPITOR20 MG ORAL (17:56)
[2017-02-22] MEDS ORDERED: ASPIRIN EC81 MG ORAL (17:56)
[2017-02-22] MEDS ORDERED: NORVASC5 MG ORAL (17:56)
[2017-02-22] MEDS ORDERED: NS 550ML IV ONE (19:24)
--- NOTE | 2017-02-23 10:51 | Diagnostic Imaging Report ---
Indication: Chest pain Technique: One view of the chest Comparison: 07/05/2009 Findings: Calcified lymph nodes are again demonstrated in the aortopulmonary window. Granulomatous calcification and some scarring is seen in the left suprahilar region. The lungs and pleural spaces are otherwise clear. Heart size is normal. The aorta is elongated tortuous and calcified Impression: Evidence of old granulomatous disease No acute process
--- NOTE | 2017-02-24 07:25 | Discharge Summary ---
Discharge Summary Hospital Course Date of Admission February 21, 2017 at 15:50 Date of Discharge February 22, 2017 at 19:25 Admitting Diagnosis ACUTE CORONARY SYNDROME PITO Clark is a 76 year old female who was admitted on February 21, 2017 at 15 :50 for Acute Coronary Syndrome Hospital Course [id number] Discharge Discharge Disposition Patient was discharged to home Discharge Diagnoses: Arlet Nolan NP Feb 24, 2017 07:25
--- NOTE | 2017-02-25 | Discharge Summary 2 SIG ---
DATE OF ADMISSION: 02/21/2017 DATE OF DISCHARGE: 02/22/2017 ATTENDING PHYSICIAN: Mike Breaux M.D. CONSULTS: 1. Sven Leger M.D. 2. Rodolfo Garcia M.D. BRIEF HOSPITAL COURSE: The patient is a 76-year-old female with a history of hypertension and coronary artery disease, presented to the ED complaining of chest pain that started in the morning while at rest. The pain was described to be left-sided, dull, and nonradiating. She has a history of hypertension. She presented to the emergency room with nausea, mild dizziness, and lightheadedness. In ED, she received sublingual nitroglycerin as well as morphine with resolution of her symptoms. On evaluation, initial EKG did not show any acute ischemic changes and troponin was negative. Chest x-ray done was unremarkable. Potassium was slightly elevated. Due to her age and risk factors, she was admitted for further cardiac evaluation. She was seen by Cardiology consult. Troponins were monitored. She was given aspirin and Lipitor and was continued on metoprolol. She was also followed by Dr. Garcia to evaluate renal failure. The patient was given saline bolus. Echocardiogram done showed normal ejection fraction. Renal ultrasound was negative for hydronephrosis with a nonobstructive left renal calculi and bilateral renal cysts. There was no evidence of NH and the patient was recommended to undergo a stress test, but was adamant about going home. It was explained to the patient and daughter that it would not be safe to go home before a stress test and stress test needed to determine if there is any evidence of underlying coronary artery disease. The patient insisted on going home. She was recommended to follow up as outpatient and was explained the need for further testing to follow up with Dr. Griffin or Cardiology. Explained stress test as outpatient will not be done/ performed as early as it would be as an inpatient. She was given full explanation and is aware of the risks and the patient was discharged home. Due to rapid improvement in the patient's symptoms and the patient refusing to undergo further test, the patient was discharged home in stable condition. FINAL DIAGNOSES: 1. Chest pain. 2. Hypertension. 3. Hyperthyroidism. 4. Acute renal failure. 5. Hyperlipidemia. 6. [id number] renal failure. 7. Diabetes mellitus. 8. Anemia. 9. Costochondritis. 10. Hyperkalemia, status post Kayexalate. Sven Leger M.D. I have been assigned to dictate discharge summary on this account and I was not involved in the patient's management. Arlet Nolan N.P. DR: BOB JOB#: [id number] CC: MINERVA
[2017-03-01 12:18] LABS: FREE TRIIODOTHYRONINE 4.3 pg/mL (2.0-4.4)
== END 2017-02-22 19:25 | disposition home or self-care (01) | DRG 206 ==
LOC: EMR 14:31 → EDBEDREQ 14:58 → 2E 15:50
DX: M94.0 Chondrocostal junction syndrome [Tietze] (principal); N17.9 Acute kidney failure, unspecified; E87.5 Hyperkalemia; D64.9 Anemia, unspecified; R07.9 Chest pain, unspecified; Z53.29 Procedure and treatment not carried out because of patient's decision for other reasons; E03.9 Hypothyroidism, unspecified; E78.5 Hyperlipidemia, unspecified; J45.909 Unspecified asthma, uncomplicated; I12.9 Hypertensive chronic kidney disease with stage 1 through stage 4 chronic kidney disease, or unspecified chronic kidney disease; N18.9 Chronic kidney disease, unspecified; E78.00 Pure hypercholesterolemia, unspecified
CPT/HCPCS: 36415; 71010; 76775; 80053; 80061; 81001; 82436; 82533; 82550; 82553; 83036; 83735; 83880; 83930; 83935; 84100; 84133; 84300; 84439; 84443; 84481; 84484; 84550; 85007; 85025; 85610; 85730; 86140; 89050; 93005; 93306; 94664; J2405

== ENCOUNTER 2017-08-15 12:55 | Inpatient (IN) | payer MEDICARE, OTHER ==
[~2017-08-15] VITALS: Ht 162.6 cm; Wt 72.6 kg
[~2017-08-15 12:55] MED LIST: APRESOLINE50 MG ORAL; ASPIRIN EC81 MG ORAL; CLONAZEPAM0.5 MG PO; CRESTOR20 MG ORAL; LIPITOR20 MG ORAL; MECLIZINE HCL25 M1 ORAL; METHIMAZOLE10 MG PO; METOPROLOL TART25 MG ORAL; MICARDIS80 MG ORAL; MYRBETRIQ50 MG PO; NAMENDA XR7 MG PO; NEXIUM40 MG ORAL; NORVASC5 MG ORAL; OLANZAPINE2.5 MG ORAL; ROPINIROLE HC0.25 MG PO; TRAMADOL HCL50 MG ORAL
--- NOTE | 2017-08-15 13:28 | Emergency Room Report ---
History of Present Illness General Chief Complaint: Abdominal Pain Source: Patient, Family Member Present Illness HPI The patient is a 76-year-old female who presented after increased a dull pain to her abdomen. The patient had gradual onset of symptoms over the past 3 days. The patient had noted increased Increased pain with bowel movements. The patient did have increased difficulty with a painful stool she denied any black or bloody stools. She denied any urinary symptoms. She reported having diffuse pain to her lower abdomen. She denied any fever or vomiting. Patient reported having nausea. Allergies: Coded Allergies: No Known Allergies (Unverified , 02/21/17) Patient History Past Medical History: see triage record Reviewed Nursing Documentation: PMH: Agreed, PSxH: Agreed Nursing Documentation-PMH Hx Cardiac Problems: Yes Hx Hypertension: Yes Hx Pacemaker: No Hx Asthma: Yes Hx COPD: No Hx Diabetes: No Hx Cancer: No Hx Gastrointestinal Problems: No Hx Dialysis: No History Of Psychiatric Problem: No Hx Neurological Problems: Yes - thyroid Hx Cerebrovascular Accident: No Hx Seizures: No Hx Headaches: Yes Review of Systems All Other Systems: negative except mentioned in HPI Physical Exam Vital Signs Date Time Temp Pulse Resp B/P (MAP) Pulse Ox O2 Delivery O2 Flow Rate FiO2 08/15/17 13:05 97.3 78 16 140/80 99 Room Air General Appearance: alert, GCS 15, mild distress, Chronically Ill Eyes: bilateral eye PERRL ENT: normal pharynx Neck: full range of motion, supple, thyroid normal Respiratory: lungs clear, normal breath sounds, no respiratory distress Cardiovascular #1: normal peripheral pulses, regular rate, rhythm Gastrointestinal: normal inspection, soft, tenderness - mild diffuse tenderness Genitourinary: no CVA tenderness Musculoskeletal: normal inspection, gait/station normal Neurologic: normal inspection, alert, oriented x3, responsive Medical Decision Making Diagnostic Impression: Primary Impression: Abdominal pain ER Course Patient presented for abdominal pain. Differential diagnoses included ischemic bowel, appendicitis, perforated viscus, abdominal aortic aneurysm, inferior myocardial infarction, viral gastroenteritis Because of complexity of patient's case laboratory testing and imaging studies were ordered. A CT imaging of the abdomen pelvis was ordered due to patient's acute pain. Patient's laboratory tests were unremarkable. The patient endorsed Dr. Garcia pending CT imaging. I anticipate the patient will be admitted to the hospital for further monitoring and treatment given the patient's advanced age. Labs Test 08/15/17 13:40 White Blood Count 5.7 K/UL (4.8-10.8) Red Blood Count 3.83 M/UL (4.20-5.40) Hemoglobin 11.0 G/DL (12.0-16.0) Hematocrit 35.2 % (37.0-47.0) Mean Corpuscular Volume 92 FL (80-99) Mean Corpuscular Hemoglobin 28.9 PG (27.0-31.0) Mean Corpuscular Hemoglobin Concent 31.4 G/DL (32.0-36.0) Red Cell Distribution Width 12.9 % (11.6-14.8) Platelet Count 165 K/UL (150-450) Mean Platelet Volume 7.7 FL (6.5-10.1) Neutrophils (%) (Auto) 52.7 % (45.0-75.0) Lymphocytes (%) (Auto) 31.3 % (20.0-45.0) Monocytes (%) (Auto) 8.8 % (1.0-10.0) Eosinophils (%) (Auto) 6.0 % (0.0-3.0) Basophils (%) (Auto) 1.2 % (0.0-2.0) Prothrombin Time 10.4 SEC (9.30-11.50) Prothromb Time International Ratio 1.0 (0.9-1.1) Activated Partial Thromboplast Time 24 SEC (23-33) Sodium Level 142 MMOL/L (136-145) Potassium Level 4.6 MMOL/L (3.5-5.1) Chloride Level 109 MMOL/L (98-107) Carbon Dioxide Level 24 MMOL/L (21-32) Anion Gap 9 mmol/L (5-15) Blood Urea Nitrogen 28 mg/dL (7-18) Creatinine 1.5 MG/DL (0.55-1.30) Estimat Glomerular Filtration Rate mL/min (>60) Glucose Level 94 MG/DL (74-106) Calcium Level 9.8 MG/DL (8.5-10.1) Total Bilirubin 0.5 MG/DL (0.2-1.0) Aspartate Amino Transf (AST/SGOT) 23 U/L (15-37) Alanine Aminotransferase (ALT/SGPT) 21 U/L (12-78) Alkaline Phosphatase 70 U/L (46-116) Total Protein 7.2 G/DL (6.4-8.2) Albumin 3.4 G/DL (3.4-5.0) Globulin 3.8 g/dL Albumin/Globulin Ratio 0.9 (1.0-2.7) Lipase 115 U/L (73-393) EKG Diagnostic Results Rate: normal - 68 Rhythm: NSR ST Segments: no acute changes Rhythm Strip Diag. Results EP Interpretation: yes Rhythm: NSR, no PVC's, no ectopy Last Vital Signs Date Time Temp Pulse Resp B/P (MAP) Pulse Ox O2 Delivery O2 Flow Rate FiO2 08/15/17 13:05 97.3 78 16 140/80 99 Room Air Status: unchanged Disposition: XFER T-TRM HOSP Condition: Serious Victor Manuel Lockhart Aug 15, 2017 13:28
[2017-08-15] MEDS ORDERED: Morphine Sulfate 2mg/ml Inj IVP ONE (13:30)
[2017-08-15 13:45] VITALS: BP 152/64
[2017-08-15 14:26] LABS: BASOPHILS % (AUTO) 1.2 % (0.0-2.0); LYMPHOCYTES % (AUTO) 31.3 % (20.0-45.0); MEAN CORPUSCULAR HEMOGLOBIN 28.9 PG (27.0-31.0); MEAN CORPUSCULAR HGB CONC 31.4 G/DL (32.0-36.0); MEAN CORPUSCULAR VOLUME 92 FL (80-99); MEAN PLATELET VOLUME 7.7 FL (6.5-10.1); MONOCYTES % (AUTO) 8.8 % (1.0-10.0); NEUTROPHILS % (AUTO) 52.7 % (45.0-75.0); PLATELET COUNT 165 K/UL (150-450); PROTHROMBIN TIME 10.4 SEC (9.30-11.50); RED BLOOD COUNT 3.83 M/UL (4.20-5.40); RED CELL DISTRIBUTION WIDTH 12.9 % (11.6-14.8); WHITE BLOOD COUNT 5.7 K/UL (4.8-10.8)
[2017-08-15 14:27] LABS: ANION GAP 9 mmol/L (5-15); CALCIUM 9.8 MG/DL (8.5-10.1); CARBON DIOXIDE 24 MMOL/L (21-32); CHLORIDE 109 MMOL/L (98-107); CREATININE 1.5 MG/DL (0.55-1.30); POTASSIUM 4.6 MMOL/L (3.5-5.1); SODIUM 142 MMOL/L (136-145)
[2017-08-15 14:31] LABS: ALANINE AMINOTRANSFERASE 21 U/L (12-78); ALBUMIN/GLOBULIN RATIO 0.9 (1.0-2.7); ASPARTATE AMINO TRANSFERASE 23 U/L (15-37); LIPASE 115 U/L (73-393); TOTAL PROTEIN 7.2 G/DL (6.4-8.2)
--- NOTE | 2017-08-15 16:37 | Diagnostic Imaging Report ---
Clinical Indication: PAIN abdominal pain x3 days, nausea Technique: Patient ingested a limited amount of oral contrast, unable to tolerate further oral contrast due to nausea IV administration nonionic contrast. Venous phase spiral acquisition obtained through the abdomen and pelvis. Multiplanar reconstructions were generated. Total dose length product 971 mGycm. CTDIvol(s) 17 mGy. Dose reduction achieved using automated exposure control Comparison: None Findings: The appendix is normal. There is a solitary colonic diverticulum. There is high attenuation outlining the periphery of an epiploic appendage adjacent to the inferior aspect of the distal sigmoid. No central high attenuation is demonstrated. No evidence of diverticulitis. Contrast does traverse the entirety of the small bowel and is seen in the colon. No small bowel wall thickening is evident. There is a small duodenal diverticulum. There is a moderate-sized sliding-type hiatal hernia No definite gallstones. The extrahepatic bile ducts are somewhat ectatic, common bile duct measuring up to 9 mm in diameter. No downstream obstruction lesion is evident, however. No intrahepatic biliary ductal dilatation. The liver, pancreas, spleen, are unremarkable. The kidneys demonstrate bilateral cysts. There is marked bilateral cortical irregularity. There is focal dilatation and high attenuation of the right upper pole collecting system. Both kidneys demonstrate subcentimeter low-attenuation lesions which are too small to characterize. These are fairly extensive. There is some bilateral perinephric fat stranding. A small calcification is seen in the right upper pole collecting system. Another small 2 mm calcification is seen in the right lower pole collecting system. No hydroureter or ureteral calculi demonstrated. The bladder is nondistended. No pelvic mass or adenopathy. There is a 2 cm unilocular right ovarian cyst with imperceptible wall. The included lung bases are clear. There are degenerative changes of the lumbar spine. Impression: Attenuation outlining the periphery of a pelvic epiploic appendage. Given the absence of central or peripheral inflammatory changes, significance of this is uncertain. However, it could indicate mild/early epiploic appendagitis Unusual focal dilatation of high attenuation of the right upper pole renal collecting system. Focal hydronephrosis or small collecting system neoplasm not excludable. Consider short interval followup imaging in 3-6 months Single small colonic diverticulum. No evidence of diverticulitis Moderate-sized sliding-type hiatal hernia Ectatic extrahepatic bile ducts. No definite downstream obstructive lesion. Suspect on the basis of age-related changes. However, occult downstream obstruction not completely excludable. Correlate with liver function tests, consider MRCP for better characterization if there is high clinical suspicion Renal cysts and subcentimeter low-attenuation lesions, which are too small to characterize, most likely benign simple cysts. No further followup necessary Bilateral renal cortical irregularity, probably on the basis of chronic scarring Nonobstructive right renal collecting system calculi 2 cm unilocular right ovarian cyst with benign features. No further followup necessary Other findings as noted, including degenerative spondylosis, nonspecific bilateral perinephric fat stranding The CT scanner at [facility] is accredited by the [employer] and the scans are performed using protocols designed to limit radiation exposure to as low as reasonably achievable to attain images of sufficient resolution adequate for diagnostic evaluation.
--- NOTE | 2017-08-15 17:19 | History and Physical ---
History of Present Illness General Date patient seen: Aug 15, 2017 Reason for Hospitalization: Abdominal Pain Present Illness HPI 76-year-old female with hx of HTN, presented to ER with a dull pain to her abdomen with gradual onset of symptoms over the past 3 days. The patient had noted increased Increased pain with bowel movements.She reported having diffuse pain to her lower abdomen. She is admitted for intractable abdominal pain. Allergies: Coded Allergies: No Known Allergies (Unverified , 02/21/17) Medication History Scheduled Amlodipine Besylate (Norvasc), 5 MG ORAL DAILY Aspirin Ec* (Aspirin Ec*), 81 MG ORAL DAILY Atorvastatin Calcium* (Lipitor*), 20 MG ORAL QHS Clonazepam (Clonazepam), 0.5 MG PO BID, (Reported) Esomeprazole Magnesium (Nexium), 40 MG ORAL DAILY, (Reported) Hydralazine HCl (Hydralazine HCl), 50 MG ORAL EVERY 8 HOURS, (Reported) Memantine Hcl (Namenda Xr), 7 MG PO QHS, (Reported) Methimazole (Methimazole), 10 MG PO EVERY OTHER DAY, (Reported) Metoprolol Tartrate* (Metoprolol Tartrate*), 25 MG ORAL EVERY 12 HOURS, ( Reported) Mirabegron (Myrbetriq), 50 MG PO DAILY, (Reported) Olanzapine (Olanzapine), 2.5 MG ORAL QHS, (Reported) Ropinirole Hcl* (Ropinirole Hcl*), 0.25 MG PO QHS, (Reported) Rosuvastatin Calcium* (Crestor*), 20 MG ORAL DAILY, (Reported) Tramadol Hcl* (Ultram*), 50 MG ORAL TID, (Reported) Scheduled PRN Meclizine Hcl (Meclizine Hcl), 25 MG ORAL THREE TIMES A DAY PRN for for dizziness, (Reported) Patient History Healthcare decision maker N Resuscitation status Advanced Directive on File Past Medical/Surgical History Past Medical/Surgical History: (1) HTN (hypertension) Review of Systems All Other Systems: negative except mentioned in HPI Physical Exam General Appearance: cachetic Lines, tubes and drains: peripheral HEENT: normocephalic, atraumatic Neck: non-tender, normal alignment, limited range of motion Respiratory/Chest: chest wall non-tender, lungs clear Cardiovascular/Chest: normal peripheral pulses, regular rhythm Abdomen: normal bowel sounds Genitourinary/Rectal: normal genital exam Extremities: normal range of motion Skin Exam: normal pigmentation Neurologic: no motor/sensory deficits Last 24 Hour Vital Signs Date Time Temp Pulse Resp B/P (MAP) Pulse Ox O2 Delivery O2 Flow Rate FiO2 08/15/17 16:27 156/64 08/15/17 13:45 97.9 88 22 152/64 99 Room Air 08/15/17 13:05 97.3 78 16 140/80 99 Room Air Intake and Output 08/15/17 08/16/17 19:00 07:00 Intake Total 0 ml Balance 0 ml Intake Oral 0 ml Laboratory Tests Test 08/15/17 13:40 White Blood Count 5.7 K/UL (4.8-10.8) Red Blood Count 3.83 M/UL (4.20-5.40) L Hemoglobin 11.0 G/DL (12.0-16.0) L Hematocrit 35.2 % (37.0-47.0) L Mean Corpuscular Volume 92 FL (80-99) Mean Corpuscular Hemoglobin 28.9 PG (27.0-31.0) Mean Corpuscular Hemoglobin Concent 31.4 G/DL (32.0-36.0) L Red Cell Distribution Width 12.9 % (11.6-14.8) Platelet Count 165 K/UL (150-450) Mean Platelet Volume 7.7 FL (6.5-10.1) Neutrophils (%) (Auto) 52.7 % (45.0-75.0) Lymphocytes (%) (Auto) 31.3 % (20.0-45.0) Monocytes (%) (Auto) 8.8 % (1.0-10.0) Eosinophils (%) (Auto) 6.0 % (0.0-3.0) H Basophils (%) (Auto) 1.2 % (0.0-2.0) Prothrombin Time 10.4 SEC (9.30-11.50) Prothromb Time International Ratio 1.0 (0.9-1.1) Activated Partial Thromboplast Time 24 SEC (23-33) Sodium Level 142 MMOL/L (136-145) Potassium Level 4.6 MMOL/L (3.5-5.1) Chloride Level 109 MMOL/L (98-107) H Carbon Dioxide Level 24 MMOL/L (21-32) Anion Gap 9 mmol/L (5-15) Blood Urea Nitrogen 28 mg/dL (7-18) H Creatinine 1.5 MG/DL (0.55-1.30) H Estimat Glomerular Filtration Rate mL/min (>60) Glucose Level 94 MG/DL (74-106) Calcium Level 9.8 MG/DL (8.5-10.1) Total Bilirubin 0.5 MG/DL (0.2-1.0) Aspartate Amino Transf (AST/SGOT) 23 U/L (15-37) Alanine Aminotransferase (ALT/SGPT) 21 U/L (12-78) Alkaline Phosphatase 70 U/L (46-116) Total Protein 7.2 G/DL (6.4-8.2) Albumin 3.4 G/DL (3.4-5.0) Globulin 3.8 g/dL Albumin/Globulin Ratio 0.9 (1.0-2.7) L Lipase 115 U/L (73-393) Height (Feet): 5 Height (Inches): 4.00 Weight (Pounds): 160 Assessment/Plan Problem List: (1) Abdominal pain ICD Codes: R10.9 - Unspecified abdominal pain SNOMED: 16554454 (2) HTN (hypertension) ICD Codes: I10 - Essential (primary) hypertension SNOMED: 97836471 Assessment/Plan npo Iv fluids GI evaluation symptomatic treatment WINSOME REECE Aug 15, 2017 17:19
[2017-08-15] MEDS ORDERED: Nitroglycerin Subl 0.4mg tab SL PRN (17:30)
[2017-08-15] MEDS ORDERED: Morphine Sulfate 2mg/ml Inj IVP PRN (17:30)
[2017-08-15] MEDS ORDERED: LORazepam Inj 2mg/ml 1ml IV PRN (17:30)
[2017-08-15] MEDS ORDERED: Metoclopramide 10mg/2ml Inj IVP PRN (17:30)
[2017-08-15] MEDS ORDERED: Mylanta II UD 30ml ORAL PRN (17:30)
[2017-08-15] MEDS ORDERED: Miralax 17gm pkt ORAL PRN (17:30)
[2017-08-15 18:03] VITALS: BP 157/66
[2017-08-15] MEDS: clonazePAM 0.5mg tab ORAL SCH (18:09)
[2017-08-15] MEDS: D5 1/2NS 1,000 ML IV SCH (18:10)
[2017-08-15 19:57] LABS: KETONES,URINE NEGATIVE (NEGATIVE); LEUKOCYTE ESTERASE ,URINE NEGATIVE (NEGATIVE); NITRITE,URINE NEGATIVE (NEGATIVE); PH,URINE 6 (4.5-8.0); PROTEIN,URINE NEGATIVE (NEGATIVE); UROBILINOGEN,URINE NORMAL MG/DL (0.0-1.0)
[2017-08-15 19:59] LABS: APPEARANCE,URINE CLEAR
[2017-08-15 20:00] VITALS: BP 152/74
[2017-08-15] MEDS ORDERED: OLANZapine 2.5mg tab ORAL SCH (21:00)
[2017-08-15] MEDS ORDERED: rOPINIRole 0.25mg tab ORAL SCH (21:00)
[2017-08-15] MEDS ORDERED: Atorvastatin 20mg tab ORAL SCH (21:00)
[2017-08-15] MEDS: Metoprolol 25mg tab ORAL SCH (21:25)
[2017-08-15] MEDS: Heparin 5000 units/ml inj SUBQ SCH (21:29)
[2017-08-15] MEDS: HydrALAZINE 50mg tab ORAL SCH (21:32)
[2017-08-16] VITALS: BP 111/56
[2017-08-16 04:00] VITALS: BP 131/61
[2017-08-16] MEDS: D5 1/2NS 1,000 ML IV SCH (04:19)
[2017-08-16] MEDS: HydrALAZINE 50mg tab ORAL SCH ×2 (06:00→13:18)
[2017-08-16 08:00] VITALS: BP 140/69
[2017-08-16 08:17] LABS: LYMPHOCYTES % (AUTO) 38.4 % (20.0-45.0); MEAN CORPUSCULAR HEMOGLOBIN 29.4 PG (27.0-31.0); MEAN CORPUSCULAR HGB CONC 31.4 G/DL (32.0-36.0); MEAN CORPUSCULAR VOLUME 93 FL (80-99); MEAN PLATELET VOLUME 7.6 FL (6.5-10.1); MONOCYTES % (AUTO) 9.4 % (1.0-10.0); NEUTROPHILS % (AUTO) 41.2 % (45.0-75.0); PLATELET COUNT 138 K/UL (150-450); RED BLOOD COUNT 3.49 M/UL (4.20-5.40); RED CELL DISTRIBUTION WIDTH 13.4 % (11.6-14.8); WHITE BLOOD COUNT 4.7 K/UL (4.8-10.8)
[2017-08-16 08:47] LABS: ALANINE AMINOTRANSFERASE 18 U/L (12-78); ALBUMIN/GLOBULIN RATIO 0.9 (1.0-2.7); AMYLASE 48 U/L (25-115); ANION GAP 8 mmol/L (5-15); ASPARTATE AMINO TRANSFERASE 17 U/L (15-37); CALCIUM 9.3 MG/DL (8.5-10.1); CARBON DIOXIDE 22 MMOL/L (21-32); CHLORIDE 111 MMOL/L (98-107); CREATININE 1.5 MG/DL (0.55-1.30); LIPASE 107 U/L (73-393); POTASSIUM 4.1 MMOL/L (3.5-5.1); SODIUM 141 MMOL/L (136-145); TOTAL PROTEIN 6.1 G/DL (6.4-8.2)
[2017-08-16] MEDS ORDERED: Pantoprazole Inj IV SCH (09:00)
[2017-08-16] MEDS: Heparin 5000 units/ml inj SUBQ SCH (09:36)
[2017-08-16] MEDS: clonazePAM 0.5mg tab ORAL SCH (09:36)
[2017-08-16] MEDS: Metoprolol 25mg tab ORAL SCH (09:37)
[2017-08-16] MEDS ORDERED: Metoclopramide 10mg/2ml Inj IVP PRN ×2 (10:45→15:00)
--- NOTE | 2017-08-16 12:10 | Pulmonology Progress Note ---
Assessment/Plan Problems: (1) Abdominal pain (2) HTN (hypertension) Assessment/Plan US done start diet awaiting GI evaluation prn meds for constipation Subjective ROS Limited/Unobtainable: No Interval Events: constipated Constitutional: Reports: no symptoms HEENT: Repors: no symptoms Respiratory: Reports: no symptoms Allergies: Coded Allergies: No Known Allergies (Unverified , 02/21/17) Objective Last 24 Hour Vital Signs Date Time Temp Pulse Resp B/P (MAP) Pulse Ox O2 Delivery O2 Flow Rate FiO2 08/16/17 09:37 65 140/69 08/16/17 08:00 97.8 65 20 140/69 94 Room Air 08/16/17 06:00 131/61 08/16/17 04:00 68 08/16/17 04:00 97.3 65 18 131/61 92 Room Air 08/16/17 00:00 65 08/16/17 00:00 96.8 66 18 111/56 93 Room Air 08/15/17 21:32 152/74 08/15/17 21:25 71 152/74 08/15/17 20:00 64 08/15/17 20:00 97.7 71 18 152/74 89 Room Air 08/15/17 18:03 97.9 73 19 157/66 Room Air 08/15/17 16:27 156/64 08/15/17 16:22 75 08/15/17 13:45 97.9 88 22 152/64 99 Room Air 08/15/17 13:05 97.3 78 16 140/80 99 Room Air General Appearance: WD/WN HEENT: normocephalic, atraumatic Respiratory/Chest: chest wall non-tender, lungs clear Breasts: no masses Cardiovascular: normal rate, regular rhythm Abdomen: normal bowel sounds, soft, non tender Extremities: no cyanosis Skin: no rash, no lesions Laboratory Tests 08/15/17 13:40: White Blood Count 5.7, Red Blood Count 3.83L, Hemoglobin 11.0L, Hematocrit 35.2L , Mean Corpuscular Volume 92, Mean Corpuscular Hemoglobin 28.9, Mean Corpuscular Hemoglobin Concent 31.4L, Red Cell Distribution Width 12.9, Platelet Count 165, Mean Platelet Volume 7.7, Neutrophils (%) (Auto) 52.7, Lymphocytes (%) (Auto) 31.3, Monocytes (%) (Auto) 8.8, Eosinophils (%) (Auto) 6.0H, Basophils (%) (Auto) 1.2, Prothrombin Time 10.4, Prothromb Time International Ratio 1.0, Activated Partial Thromboplast Time 24, Sodium Level 142, Potassium Level 4.6, Chloride Level 109H, Carbon Dioxide Level 24, Anion Gap 9, Blood Urea Nitrogen 28H, Creatinine 1.5H, Estimat Glomerular Filtration Rate , Glucose Level 94, Calcium Level 9.8, Total Bilirubin 0.5, Aspartate Amino Transf (AST/SGOT) 23, Alanine Aminotransferase (ALT/SGPT) 21, Alkaline Phosphatase 70, Total Protein 7.2, Albumin 3.4, Globulin 3.8, Albumin/Globulin Ratio 0.9L, Lipase 115 08/15/17 19:00: Urine Color Pale yellow, Urine Appearance Clear, Urine pH 6, Urine Specific Ledbetter 1.015, Urine Protein Negative, Urine Glucose (UA) Negative, Urine Ketones Negative, Urine Occult Blood Negative, Urine Nitrite Negative, Urine Bilirubin Negative, Urine Urobilinogen Normal, Urine Leukocyte Esterase Negative 08/16/17 07:25: White Blood Count 4.7L, Red Blood Count 3.49L, Hemoglobin 10.3L, Hematocrit 32.6L, Mean Corpuscular Volume 93, Mean Corpuscular Hemoglobin 29.4, Mean Corpuscular Hemoglobin Concent 31.4L, Red Cell Distribution Width 13.4, Platelet Count 138L, Mean Platelet Volume 7.6, Neutrophils (%) (Auto) 41.2L, Lymphocytes (%) (Auto) 38.4, Monocytes (%) (Auto) 9.4, Eosinophils (%) (Auto) 10.0H, Basophils (%) (Auto) 1.0, Activated Partial Thromboplast Time 26, Sodium Level 141, Potassium Level 4.1, Chloride Level 111H, Carbon Dioxide Level 22, Anion Gap 8, Blood Urea Nitrogen 23H, Creatinine 1.5H, Estimat Glomerular Filtration Rate , Glucose Level 98, Calcium Level 9.3, Total Bilirubin 0.4, Aspartate Amino Transf (AST/SGOT) 17, Alanine Aminotransferase (ALT/SGPT) 18, Alkaline Phosphatase 64, Total Protein 6.1L, Albumin 2.9L, Globulin 3.2, Albumin /Globulin Ratio 0.9L, Lipase 107, Amylase Level 48 Current Medications Medications (Trade) Dose Ordered Sig/Tressa Route PRN Reason Start Time Stop Time Status Last Admin Dose Admin Acetaminophen (Tylenol) 650 mg Q4H PRN ORAL fever 08/15/17 17:30 09/14/17 17:29 08/16/17 04:39 Al Hydroxide/Mg Hydroxide (Mylanta II) 30 ml Q6H PRN ORAL dyspepsia 08/15/17 17:30 09/14/17 17:29 Amlodipine Besylate (Norvasc) 5 mg DAILY ORAL 08/16/17 09:00 09/15/17 08:59 Atorvastatin Calcium (Lipitor) 20 mg QHS ORAL 08/15/17 21:00 09/14/17 20:59 08/15/17 21:25 Clonazepam (KlonoPIN) 0.5 mg BID ORAL 08/15/17 18:00 08/22/17 17:59 08/16/17 09:36 Dextrose (Dextrose 50%) STAT PRN IV Hypoglycemia 08/15/17 17:30 09/14/17 17:29 Dextrose/Sodium Chloride 1,000 ml @ 75 mls/hr [id number] IV 08/15/17 18:00 09/14/17 17:59 08/16/17 04:19 Diphenhydramine HCl (Benadryl) 25 mg Q6H PRN ORAL Itching/Pruritis 08/15/17 17:30 09/14/17 17:29 Heparin Sodium (Porcine) (Heparin 5000 units/ml) 5,000 units EVERY 12 HOURS SUBQ 08/15/17 21:00 09/14/17 20:59 08/16/17 09:36 Hydralazine HCl (Apresoline) 50 mg EVERY 8 HOURS ORAL 08/15/17 22:00 09/14/17 21:59 08/15/17 21:32 Lorazepam (Ativan 2mg/ml 1ml) 1 mg Q4H PRN IV agitation 08/15/17 17:30 08/22/17 17:29 Metoclopramide HCl (Reglan) 5 mg Q6H PRN IVP servere n[place]ase[place] 08/16/17 10:45 09/15/17 10:44 Metoprolol Tartrate (Lopressor) 25 mg EVERY 12 HOURS ORAL 08/15/17 21:00 09/14/17 20:59 08/16/17 09:37 Morphine Sulfate (Morphine Sulfate) 2 mg Q4H PRN IVP severe Pain (Pain Scale 7-10) 08/15/17 17:30 08/22/17 17:29 Nitroglycerin (Ntg) 0.4 mg Q5M X 3 DOSES PRN SL Prn Chest Pain 08/15/17 17:30 09/14/17 17:29 Olanzapine (ZyPREXA) 2.5 mg QHS ORAL 08/15/17 21:00 09/14/17 20:59 08/15/17 21:25 Ondansetron HCl (Zofran) 4 mg Q6H PRN IVP Nausea & Vomiting 08/15/17 17:30 09/14/17 17:29 Pantoprazole (Protonix) 40 mg DAILY IV 08/16/17 09:00 09/15/17 08:59 08/16/17 09:37 Polyethylene Glycol (Miralax) 17 gm HSPRN PRN ORAL Constipation 08/15/17 17:30 09/14/17 17:29 Promethazine HCl (Phenergan) 25 mg Q8H PRN IV refractory nausea 08/15/17 17:30 09/14/17 17:29 Ropinirole HCl (Requip) 0.25 mg QHS ORAL 08/15/17 21:00 09/14/17 20:59 08/15/17 21:26 Temazepam (Restoril) 15 mg HSPRN PRN ORAL Insomnia 08/15/17 17:30 08/22/17 17:29 WINSOME REECE Aug 16, 2017 12:10
[2017-08-16 12:19] VITALS: BP 133/68
[2017-08-16] MEDS ORDERED: D5 1/2NS 1,000 ML IV SCH ×3 (13:45→15:00)
[2017-08-16] MEDS ORDERED: HydrALAZINE 50mg tab ORAL SCH ×2 (14:00→22:00)
--- NOTE | 2017-08-16 14:23 | GI Initial Consult Note ---
HollyHaylee Casanova N.P. 08/16/17 1423: History of Present Illness General Date patient seen: Aug 16, 2017 Time patient seen: 14:12 Reason for Hospitalization: Abdominal Pain Referring physician: WINSOME JOHNSON Reason for Consultation: ABDOMINAL PAIN Present Illness HPI The patient is a 76-year-old female who presented after increased a dull pain to her abdomen. The patient had gradual onset of symptoms over the past 3 days. The patient had noted increased Increased pain with bowel movements. The patient did have increased difficulty with a painful stool she denied any black or bloody stools. She denied any urinary symptoms. She reported having diffuse pain to her lower abdomen. She denied any fever or vomiting. Patient reported having nausea. GI consulted for abdominal pain. HPI as noted above. Pt seen on floor, awake A&Ox4 NAD with no active s/sx of N/V/D. C/o of lower abdominal pain x 3 days, more directed towards the suprapubic area. Denies any problems urinating and having bowel movements. No epigastric pain. She presents today with anemia, elevated creatinine, CBD 9mm and ectatic extrahepatic bile duct on CT AP. Unknown history of colonoscopy. Home Meds Active Scripts Atorvastatin Calcium* (LIPITOR*) 20 Mg Tablet, 20 MG ORAL QHS, #30 TAB Prov:WANDA MIRANDA 02/22/17 Aspirin Ec* (ASPIRIN EC*) 81 Mg Tablet.dr, 81 MG ORAL DAILY, #30 TAB Prov:WANDA MIRANDA 02/22/17 Amlodipine Besylate (Norvasc) 5 Mg Tablet, 5 MG ORAL DAILY, #60 TAB Prov:WANDA MIRANDA 02/22/17 Reported Medications Memantine Hcl (NAMENDA XR) 7 Mg Cap.spr.24, 7 MG PO QHS, CAP 02/21/17 Olanzapine (OLANZAPINE) 2.5 Mg Tablet, 2.5 MG ORAL QHS, #30 TAB 0 Refills 02/21/17 Esomeprazole Magnesium (NEXIUM) 40 Mg Capsule.dr, 40 MG ORAL DAILY, CAP 02/21/17 Mirabegron (MYRBETRIQ) 50 Mg Tab.er.24h, 50 MG PO DAILY, TAB 02/21/17 Ropinirole Hcl* (ROPINIROLE HCL*) 0.25 Mg Tablet, 0.25 MG PO QHS, TAB 02/21/17 Rosuvastatin Calcium* (CRESTOR*) 20 Mg Tablet, 20 MG ORAL DAILY, TAB 02/21/17 Clonazepam (CLONAZEPAM) 0.5 Mg Tablet, 0.5 MG PO BID, TAB 02/21/17 Metoprolol Tartrate* (METOPROLOL TARTRATE*) 25 Mg Tablet, 25 MG ORAL EVERY 12 HOURS, TAB 02/21/17 Meclizine Hcl (MECLIZINE HCL) 25 Mg Tab.chew, 25 MG ORAL THREE TIMES A DAY Y for for dizziness, TAB 02/21/17 Hydralazine HCl (Hydralazine HCl) 50 Mg Tablet, 50 MG ORAL EVERY 8 HOURS, TAB 02/21/17 Tramadol Hcl* (ULTRAM*) 50 Mg Tablet, 50 MG ORAL TID, #30 TAB 0 Refills 02/21/17 Methimazole (METHIMAZOLE) 10 Mg Tablet, 10 MG PO EVERY OTHER DAY, TAB 02/21/17 Med list reviewed/reconciled: Yes Allergies: Coded Allergies: No Known Allergies (Unverified , 02/21/17) Patient History History Provided By: Patient, Medical Record PMH Narrative Hx Cardiac Problems: Yes Hx Hypertension: Yes Hx Pacemaker: No Hx Asthma: Yes Hx COPD: No Hx Diabetes: No Hx Cancer: No Hx Gastrointestinal Problems: No Hx Dialysis: No History Of Psychiatric Problem: No Hx Neurological Problems: Yes - thyroid Hx Cerebrovascular Accident: No Hx Seizures: No Hx Headaches: Yes Social History: Denies: smoking, alcohol use, drug use, other Review of Systems All Other Systems: negative except mentioned in HPI Physical Exam Vital Signs Date Time Temp Pulse Resp B/P (MAP) Pulse Ox O2 Delivery O2 Flow Rate FiO2 08/15/17 13:05 97.3 78 16 140/80 99 Room Air Sp02 EP Interpretation: reviewed, normal Labs Laboratory Tests Test 08/15/17 19:00 08/16/17 07:25 Urine Color Pale yellow Urine Appearance Clear Urine pH 6 (4.5-8.0) Urine Specific [place] 1.015 (1.005-1.035) Urine Protein Negative (NEGATIVE) Urine Glucose (UA) Negative (NEGATIVE) Urine Ketones Negative (NEGATIVE) Urine Occult Blood Negative (NEGATIVE) Urine Nitrite Negative (NEGATIVE) Urine Bilirubin Negative (NEGATIVE) Urine Urobilinogen Normal MG/DL (0.0-1.0) Urine Leukocyte Esterase Negative (NEGATIVE) White Blood Count 4.7 K/UL (4.8-10.8) L Red Blood Count 3.49 M/UL (4.20-5.40) L Hemoglobin 10.3 G/DL (12.0-16.0) L Hematocrit 32.6 % (37.0-47.0) L Mean Corpuscular Volume 93 FL (80-99) Mean Corpuscular Hemoglobin 29.4 PG (27.0-31.0) Mean Corpuscular Hemoglobin Concent 31.4 G/DL (32.0-36.0) L Red Cell Distribution Width 13.4 % (11.6-14.8) Platelet Count 138 K/UL (150-450) L Mean Platelet Volume 7.6 FL (6.5-10.1) Neutrophils (%) (Auto) 41.2 % (45.0-75.0) L Lymphocytes (%) (Auto) 38.4 % (20.0-45.0) Monocytes (%) (Auto) 9.4 % (1.0-10.0) Eosinophils (%) (Auto) 10.0 % (0.0-3.0) H Basophils (%) (Auto) 1.0 % (0.0-2.0) Activated Partial Thromboplast Time 26 SEC (23-33) Sodium Level 141 MMOL/L (136-145) Potassium Level 4.1 MMOL/L (3.5-5.1) Chloride Level 111 MMOL/L (98-107) H Carbon Dioxide Level 22 MMOL/L (21-32) Anion Gap 8 mmol/L (5-15) Blood Urea Nitrogen 23 mg/dL (7-18) H Creatinine 1.5 MG/DL (0.55-1.30) H Estimat Glomerular Filtration Rate mL/min (>60) Glucose Level 98 MG/DL (74-106) Calcium Level 9.3 MG/DL (8.5-10.1) Total Bilirubin 0.4 MG/DL (0.2-1.0) Aspartate Amino Transf (AST/SGOT) 17 U/L (15-37) Alanine Aminotransferase (ALT/SGPT) 18 U/L (12-78) Alkaline Phosphatase 64 U/L (46-116) Total Protein 6.1 G/DL (6.4-8.2) L Albumin 2.9 G/DL (3.4-5.0) L Globulin 3.2 g/dL Albumin/Globulin Ratio 0.9 (1.0-2.7) L Amylase Level 48 U/L (25-115) Lipase 107 U/L (73-393) General Appearance: well appearing, no apparent distress, alert Head: normocephalic EENT: PERRL/EOMI, normal ENT inspection Neck: supple Respiratory: normal breath sounds, no respiratory distress Cardiovascular: normal rate Gastrointestinal: normal inspection, non tender, soft, normal bowel sounds, non -distended Rectal: deferred Genitourinary: no CVA tenderness Musculoskeletal: normal inspection, back normal Neurologic: normal inspection, alert, oriented x3, responsive Psychiatric: normal inspection, judgement/insight normal, memory normal Skin: normal inspection, normal color, no rash, warm/dry, palpation normal, well hydrated Lymphatic: normal inspection, no adenopathy Current Medications Current Medications Medications (Trade) Dose Ordered Sig/Tressa Route PRN Reason Start Time Stop Time Status Last Admin Dose Admin Acetaminophen (Tylenol) 650 mg Q4H PRN ORAL fever 08/16/17 17:30 09/14/17 17:29 UNV Al Hydroxide/Mg Hydroxide (Mylanta II) 30 ml Q6H PRN ORAL dyspepsia 08/16/17 17:30 09/14/17 17:29 UNV Amlodipine Besylate (Norvasc) 5 mg DAILY ORAL 08/17/17 09:00 09/15/17 08:59 UNV Atorvastatin Calcium (Lipitor) 20 mg QHS ORAL 08/16/17 21:00 09/14/17 20:59 UNV Clonazepam (KlonoPIN) 0.5 mg BID ORAL 08/16/17 18:00 08/22/17 17:59 UNV Dextrose (Dextrose 50%) STAT PRN IV Hypoglycemia 08/16/17 17:30 09/14/17 17:29 UNV Dextrose/Sodium Chloride 1,000 ml @ 75 mls/hr [id number] IV 08/16/17 13:45 09/14/17 17:59 UNV Diphenhydramine HCl (Benadryl) 25 mg Q6H PRN ORAL Itching/Pruritis 08/16/17 17:30 09/14/17 17:29 UNV Heparin Sodium (Porcine) (Heparin 5000 units/ml) 5,000 units EVERY 12 HOURS SUBQ 08/16/17 21:00 09/14/17 20:59 UNV Hydralazine HCl (Apresoline) 50 mg EVERY 8 HOURS ORAL 08/16/17 14:00 09/14/17 21:59 UNV Lorazepam (Ativan 2mg/ml 1ml) 1 mg Q4H PRN IV agitation 08/16/17 17:30 08/22/17 17:29 UNV Metoclopramide HCl (Reglan) 5 mg Q6H PRN IVP servere [place] 08/16/17 16:45 09/15/17 10:44 UNV Metoprolol Tartrate (Lopressor) 25 mg EVERY 12 HOURS ORAL 08/16/17 21:00 09/14/17 20:59 UNV Morphine Sulfate (Morphine Sulfate) 2 mg Q4H PRN IVP severe Pain (Pain Scale 7-10) 08/16/17 17:30 08/22/17 17:29 UNV Nitroglycerin (Ntg) 0.4 mg Q5M X 3 DOSES PRN SL Prn Chest Pain 08/16/17 13:45 09/14/17 17:29 UNV Olanzapine (ZyPREXA) 2.5 mg QHS ORAL 08/16/17 21:00 09/14/17 20:59 UNV Ondansetron HCl (Zofran) 4 mg Q6H PRN IVP Nausea & Vomiting 08/16/17 17:30 09/14/17 17:29 UNV Pantoprazole (Protonix) 40 mg DAILY IV 08/17/17 09:00 09/15/17 08:59 UNV Polyethylene Glycol (Miralax) 17 gm HSPRN PRN ORAL Constipation 08/16/17 17:30 09/14/17 17:29 UNV Promethazine HCl (Phenergan) 25 mg Q8H PRN IV refractory nausea 08/16/17 17:30 09/14/17 17:29 UNV Ropinirole HCl (Requip) 0.25 mg QHS ORAL 08/16/17 21:00 09/14/17 20:59 UNV Temazepam (Restoril) 15 mg HSPRN PRN ORAL Insomnia 08/16/17 17:30 08/22/17 17:29 UNV GI: Plan Problems: (1) Dilated cbd, acquired (2) Hiatal hernia (3) Anemia (4) Abdominal pain Plan CT AP reviewed >> see full report. - possible mild/early epiploic appendagitis - Single small colonic diverticulum. No evidence of diverticulitis - Moderate-sized sliding-type hiatal hernia - CBD 9mm will defer GI procedures at this time and monitor. fu abdominal US, ok to adv diet after imaging studies follow LFTs anemia work up OB stool r/o GI bleed PPI daily fu labs outpatient GI procedures Discussed with Dr. Hunt. Thank you for this patient referral, we will follow. TIFFANIE HUNT 08/17/17 1007: History of Present Illness General Reason for Hospitalization: Abdominal Pain Present Illness Home Meds Active Scripts Atorvastatin Calcium* (LIPITOR*) 20 Mg Tablet, 20 MG ORAL QHS, #30 TAB Prov:WANDA MIRANDA 02/22/17 Aspirin Ec* (ASPIRIN EC*) 81 Mg Tablet.dr, 81 MG ORAL DAILY, #30 TAB Prov:WANDA MIRANDA 02/22/17 Amlodipine Besylate (Norvasc) 5 Mg Tablet, 5 MG ORAL DAILY, #60 TAB Prov:WANDA MIRANDA 02/22/17 Reported Medications Memantine Hcl (NAMENDA XR) 7 Mg Cap.spr.24, 7 MG PO QHS, CAP 02/21/17 Olanzapine (OLANZAPINE) 2.5 Mg Tablet, 2.5 MG ORAL QHS, #30 TAB 0 Refills 02/21/17 Esomeprazole Magnesium (NEXIUM) 40 Mg Capsule.dr, 40 MG ORAL DAILY, CAP 02/21/17 Mirabegron (MYRBETRIQ) 50 Mg Tab.er.24h, 50 MG PO DAILY, TAB 02/21/17 Ropinirole Hcl* (ROPINIROLE HCL*) 0.25 Mg Tablet, 0.25 MG PO QHS, TAB 02/21/17 Rosuvastatin Calcium* (CRESTOR*) 20 Mg Tablet, 20 MG ORAL DAILY, TAB 02/21/17 Clonazepam (CLONAZEPAM) 0.5 Mg Tablet, 0.5 MG PO BID, TAB 02/21/17 Metoprolol Tartrate* (METOPROLOL TARTRATE*) 25 Mg Tablet, 25 MG ORAL EVERY 12 HOURS, TAB 02/21/17 Meclizine Hcl (MECLIZINE HCL) 25 Mg Tab.chew, 25 MG ORAL THREE TIMES A DAY Y for for dizziness, TAB 02/21/17 Hydralazine HCl (Hydralazine HCl) 50 Mg Tablet, 50 MG ORAL EVERY 8 HOURS, TAB 02/21/17 Tramadol Hcl* (ULTRAM*) 50 Mg Tablet, 50 MG ORAL TID, #30 TAB 0 Refills 02/21/17 Methimazole (METHIMAZOLE) 10 Mg Tablet, 10 MG PO EVERY OTHER DAY, TAB 02/21/17 Allergies: Coded Allergies: No Known Allergies (Unverified , 02/21/17) GI: Plan Plan The patient was seen and examined at bedside and all new and available data was reviewed in the patients chart. I agree with the above findings, impression and plan. (Patient seen earlier today. Signature stamp does not reflect patient encounter time.). - MD Holly Del[facility] Edilberto NZaheerPZaheer Aug 16, 2017 14:23 TIFFANIE HUNT Aug 17, 2017 10:07
[2017-08-16 14:34] VITALS: BP 140/72
[2017-08-16] MEDS ORDERED: Mylanta II UD 30ml ORAL PRN (15:00)
[2017-08-16] MEDS ORDERED: Morphine Sulfate 2mg/ml Inj IVP PRN (15:00)
[2017-08-16] MEDS ORDERED: Nitroglycerin Subl 0.4mg tab SL PRN (15:00)
[2017-08-16] MEDS ORDERED: Miralax 17gm pkt ORAL PRN (15:00)
[2017-08-16] MEDS ORDERED: LORazepam Inj 2mg/ml 1ml IV PRN (15:00)
--- NOTE | 2017-08-16 15:41 | Cardiology Report ---
APPROVED REPORT EKG Measurement Heart [id number] Normal sinus rhythm Low voltage QRS Borderline ECG
[2017-08-16 15:58] VITALS: BP 147/76
--- NOTE | 2017-08-16 16:27 | Diagnostic Imaging Report ---
Indication:Abdominal pain Technique: Grayscale and duplex Doppler imaging of the abdomen performed. Comparison: None Findings: The liver, demonstrated part of the pancreas, gallbladder, IVC, spleen appear unremarkable. Both kidneys appear echogenic. There are bilateral renal cysts present. There is some cortical volume loss. Aorta is moderately calcified. There is no biliary ductal dilatation identified. Doppler evaluation of the main portal vein shows patency. There is no ascites. No hydronephrosis seen. Impression: No acute findings. Medical renal disease suspected. Please confirm clinically. Atherosclerotic disease
[2017-08-16] MEDS ORDERED: D5 1/2NS 1000ml IV ONE (16:57)
[2017-08-16] MEDS ORDERED: clonazePAM 0.5mg tab ORAL SCH (18:00)
[2017-08-16] MEDS ORDERED: Metoprolol 25mg tab ORAL SCH (21:00)
[2017-08-16] MEDS ORDERED: Heparin 5000 units/ml inj SUBQ SCH (21:00)
[2017-08-16] MEDS ORDERED: rOPINIRole 0.25mg tab ORAL SCH (21:00)
[2017-08-16] MEDS ORDERED: OLANZapine 2.5mg tab ORAL SCH (21:00)
[2017-08-16] MEDS ORDERED: Atorvastatin 20mg tab ORAL SCH (21:00)
[2017-08-17] MEDS ORDERED: Pantoprazole Inj IV SCH (09:00)
--- NOTE | 2017-08-17 17:53 | Discharge Summary ---
Discharge Summary Hospital Course Date of Admission Aug 15, 2017 at 14:06 Date of Discharge Aug 16, 2017 at 16:58 Admitting Diagnosis ABDOMINAL PAIN HPI Krystle Clark is a 76 year old female who was admitted on Aug 15, 2017 at 14 :06 for Abdominal Pain Hospital Course [id number] Discharge Discharge Disposition Patient was discharged to Home (01) Discharge Diagnoses: Arlet Nolan NP Aug 17, 2017 17:53
--- NOTE | 2017-08-18 04:30 | Discharge Summary 2 SIG ---
DATE OF ADMISSION: 08/15/2017 DATE OF DISCHARGE: 08/16/2017 CONSULTANTS: Mike Guajardo M.D. BRIEF HOSPITAL COURSE: The patient is a 76-year-old female with history of hypertension, presented to ED complaining of dull abdominal pain with gradual onset of symptoms over the past three days. She had increased pain with bowel movements and described to have diffuse pain to the lower abdomen. On evaluation at ED, she denied any black or bloody stools. Denied any urinary symptoms. There was positive nausea, however, no fever or vomiting. Workup done showed CT imaging showing an attenuation on the outlining of the pelvic epiploic appendage, negative for diverticulitis, there is a moderate sized sliding type hiatal hernia. She was admitted for intractable abdominal pain and hypertension. She was initially placed on NPO and was given IV hydration. She was given Protonix and metoclopramide. GI consultation was done. Abdominal ultrasound ordered, showed no acute findings. Deferred GI procedures at this time. LFTs and lipase normal. Diet was advanced. Due to rapid unexpected improvement in the patient's symptoms, she was eventually discharged home. FINAL DIAGNOSES: 1. Intractable abdominal pain. 2. Hypertension, treated with amlodipine, hydralazine, and metoprolol. 3. Anemia. 4. Hiatal hernia. 5. Dilated common bile duct, acquired. 6. Hyperlipidemia. DISPOSITION: The patient was discharged home. DISCHARGE MEDICATIONS: Refer to medication list. FOLLOWUP: Follow up with PMD in a week. Mike Breaux M.D. I have been assigned to dictate discharge summary on this account and I was not involved in the patient's management. Arlet Nolan N.P. DR: KIP JOB#: [id number] CC: MINERVA
== END 2017-08-16 16:58 | disposition home or self-care (01) | DRG 392 ==
LOC: EMR 14:02 → 2E 14:06 → EDBEDREQ 14:22 → 4E 08-16 14:05
DX: R10.30 Lower abdominal pain, unspecified (principal); D64.9 Anemia, unspecified; I10 Essential (primary) hypertension; K44.9 Diaphragmatic hernia without obstruction or gangrene; E78.5 Hyperlipidemia, unspecified; K82.8 Other specified diseases of gallbladder
CPT/HCPCS: 36415; 74177; 76700; 80053; 81003; 82150; 83690; 85025; 85610; 85730; 93005; 99285; J2405